=== PATIENT | male | born 1950 | race Caucasian/White ===

== ENCOUNTER → 2021-02-04 12:20 | Outpatient (CLI) | payer BC, SELFPAY ==
--- NOTE | 2021-02-04 12:24 | XR_ITS ---
PROCEDURE: XR CHEST 2V CLINICAL HISTORY: dyspnea,pneumonia COMPARISON: No exams were available for comparison FINDINGS: Borderline cardiomegaly without failure. The lungs are clear without infiltrates, suspicious nodules, or pleural effusions. Multiple old left-sided rib fractures of the 5th, 6, and 7th ribs. Coronary artery stent is noted on the left. Degenerative changes thoracic spine. IMPRESSION: No acute findings. Dictated by: Agusto Llamas MD 02/04/2021 13:00 Agusto Llamas MD in [place] 02/04/2021 13:00
== END ==
PROVIDERS: PCP Family Medicine; Visit Provider Family Medicine
DX: J06.9 Acute upper respiratory infection, unspecified (principal)
CPT/HCPCS: 71046

== ENCOUNTER → 2022-11-03 14:36 | Outpatient (CLI) | payer BC, SELFPAY ==
[2022-11-03 14:47] LABS: Basophils % 0.5 % (0.1-2.0); Eosinophils # 0.1 K/mm3 (0.0-0.4); Eosinophils % 1.7 % (0.1-12.0); Hematocrit 44.9 % (42.0-52.0); Hemoglobin 14.7 g/dL (14.1-18.0); Lymphocytes # 0.4 K/mm3 (0.7-4.5); Lymphocytes % 13.1 % (10-50); Mean Corpuscular HGB Conc 32.8 g/dL (31.8-35.4); Mean Corpuscular Hemoglobin 31.4 pg (27.0-31.2); Mean Corpuscular Volume 95.8 fl (80-94); Mean Platelet Volume 10.4 fl (7.4-10.4); Monocytes # 0.4 K/mm3 (0.1-1.0); Monocytes % 11.6 % (1.7-9.3); Neutrophils # 2.3 K/mm3 (1.8-7.8); Platelet Count 128 K/mm3 (142-424); Red Blood Count 4.69 M/mm3 (4.60-6.20); White Blood Count 3.2 K/mm3 (4.8-10.8)
[2022-11-03 14:54] LABS: Chloride 102 mmol/L (98-107); Potassium 3.9 mmoL/L (3.5-5.1); Sodium 137 mmol/L (136-145)
[2022-11-03 14:57] LABS: Alanine Aminotransferase 254 U/L (12-78); Albumin Level 4.3 g/dl (3.5-5.0); Albumin/Globulin Ratio 2.2 (1.1-1.8); Alkaline Phosphatase 223 U/L (38-126); Anion Gap 11.9 mEq/L (5-15); Aspartate Amino Transferase 165 U/L (17-59); Bilirubin,Total 1.8 mg/dl (0.2-1.3); Blood Urea Nitrogen 16 mg/dl (9-20); Carbon Dioxide 27 mmol/L (22.0-30.0); Estimated Glomerular Filt Rate 110 ml/min (>60); GFR (African American) 133 ML/MIN (>60); Total Protein,Serum 6.3 g/dl (6.3-8.2)
[2022-11-03 14:58] LABS: Calcium 9.1 mg/dl (8.4-10.2); Glucose 110 mg/dl (74-100)
== END ==
PROVIDERS: PCP Nurse Practitioner Family; Visit Provider Nurse Practitioner Family
DX: N23 Unspecified renal colic (principal); B96.89 Other specified bacterial agents as the cause of diseases classified elsewhere
CPT/HCPCS: 80053; 85025; 87086; 87088; 87186

== ENCOUNTER → 2022-11-13 13:41 | Outpatient (CLI) | payer BC, SELFPAY ==
[2022-11-13 13:18] LABS: Chloride 100 mmol/L (98-107)
[2022-11-13 13:19] LABS: Potassium 4.8 mmoL/L (3.5-5.1); Sodium 134 mmol/L (136-145)
[2022-11-13 13:21] LABS: Alanine Aminotransferase 38 U/L (12-78); Anion Gap 13.8 mEq/L (5-15); Aspartate Amino Transferase 31 U/L (17-59); Blood Urea Nitrogen 22 mg/dl (9-20); Carbon Dioxide 25 mmol/L (22.0-30.0); Estimated Glomerular Filt Rate 65 ml/min (>60); GFR (African American) 79 ML/MIN (>60)
[2022-11-13 13:22] LABS: Albumin Level 4.4 g/dl (3.5-5.0); Albumin/Globulin Ratio 2.2 (1.1-1.8); Alkaline Phosphatase 151 U/L (38-126); Bilirubin,Total 1.1 mg/dl (0.2-1.3); Calcium 9.1 mg/dl (8.4-10.2); Chol/HDL Ratio 4.2 (1-3.5); Cholesterol 217 mg/dl (140-200); Glucose 112 mg/dl (74-100); HDL Cholesterol 52 mg/dl (40-60); Total Protein,Serum 6.4 g/dl (6.3-8.2); Triglycerides 88 mg/dl (30-150); VLDL Cholesterol 18 mg/dL (0-40)
[2022-11-14 13:33] LABS: Hep A Ab, IgM Negative (Negative); Hepatitis B Core Antibody IgM Negative (Negative)
[2022-11-29 20:44] LABS: Hepatitis B Surface Antigen Negative; Hepatitis C Antibody Non Reactive
== END ==
PROVIDERS: PCP Family Medicine; Visit Provider Family Medicine
DX: R74.8 Abnormal levels of other serum enzymes (principal)
CPT/HCPCS: 80053; 80061; 80074

== ENCOUNTER → 2023-01-29 11:33 | Outpatient (CLI) | payer BC, SELFPAY ==
[2023-01-29 18:30] LABS: Basophils % 0.4 % (0.1-2.0); Eosinophils # 0.1 K/mm3 (0.0-0.4); Eosinophils % 1.7 % (0.1-12.0); Hematocrit 43.3 % (42.0-52.0); Hemoglobin 14.3 g/dL (14.1-18.0); Lymphocytes % 23.4 % (10-50); Mean Corpuscular HGB Conc 32.9 g/dL (31.8-35.4); Mean Corpuscular Hemoglobin 31.3 pg (27.0-31.2); Mean Corpuscular Volume 94.9 fl (80-94); Mean Platelet Volume 10.8 fl (7.4-10.4); Monocytes # 0.4 K/mm3 (0.1-1.0); Monocytes % 8.4 % (1.7-9.3); Neutrophils # 2.8 K/mm3 (1.8-7.8); Neutrophils % 66.2 % (37.0-80.0); Platelet Count 194 K/mm3 (142-424); Red Blood Count 4.57 M/mm3 (4.60-6.20); Red Cell Distribution Width 14.1 % (11.5-17.5); White Blood Count 4.2 K/mm3 (4.8-10.8)
[2023-01-29 18:51] LABS: Alanine Aminotransferase 25 U/L (12-78); Albumin/Globulin Ratio 2.3 (1.1-1.8); Alkaline Phosphatase 109 U/L (38-126); Anion Gap 12.7 mEq/L (5-15); Aspartate Amino Transferase 37 U/L (17-59); Blood Urea Nitrogen 16 mg/dl (9-20); Calcium 9.5 mg/dl (8.4-10.2); Carbon Dioxide 31 mmol/L (22.0-30.0); Chloride 98 mmol/L (98-107); Chol/HDL Ratio 2.5 (1-3.5); Cholesterol 245 mg/dl (140-200); Estimated Glomerular Filt Rate 94 ml/min (>60); GFR (African American) 114 ML/MIN (>60); Globulin 2.2 g/dL (1.3-3.2); Glucose 106 mg/dl (74-100); HDL Cholesterol 97 mg/dl (40-60); Potassium 4.7 mmoL/L (3.5-5.1); Sodium 137 mmol/L (136-145); Total Protein,Serum 7.2 g/dl (6.3-8.2); Triglycerides 106 mg/dl (30-150); Uric Acid 5.3 mg/dl (3.5-8.5); VLDL Cholesterol 21 mg/dL (0-40)
[2023-01-29 19:19] LABS: Erythrocyte Sedimentation Rate 9 mm/hr (0-20)
[2023-01-29 19:23] LABS: Prostate Specific Ag Screen 3.6 ng/ml (0.0-4.0)
[2023-01-29 22:43] LABS: Hemoglobin A1C 5.3 % (4.0-6.0)
[2023-01-31 08:18] LABS: RA Latex Turbid. 11.8 IU/mL (<14.0)
[2023-02-01 20:42] LABS: Antinuclear Antibodies, IFA Negative (.)
== END ==
LOC: LAB 01-30 08:44
PROVIDERS: PCP Family Medicine; Visit Provider Family Medicine
DX: M15.4 Erosive (osteo)arthritis (principal); I10 Essential (primary) hypertension; J45.909 Unspecified asthma, uncomplicated; Z79.899 Other long term (current) drug therapy; Z12.5 Encounter for screening for malignant neoplasm of prostate
CPT/HCPCS: 80053; 80061; 83036; 84550; 85025; 85651; 86038; 86140; 86431; G0103

== ENCOUNTER → 2023-02-01 23:13 | Outpatient (CLI) | payer BC, SELFPAY ==
[2023-02-01 20:41] LABS: Erythrocyte Sedimentation Rate 13 mm/hr (0-20)
== END ==
PROVIDERS: PCP Family Medicine; Visit Provider Family Medicine
DX: M15.4 Erosive (osteo)arthritis (principal)
CPT/HCPCS: 85651

== ENCOUNTER 2023-07-30 09:21 | Outpatient (CLI) | payer BC, SELFPAY ==
[2023-07-30 19:22] LABS: Amphetamine/Metha Screen,Urine Negative ng/ml (<1000); Barbiturates Screen,Urine Negative ng/ml (<200); Benzodiazepines Screen,Urine Negative ng/ml (<200); Cannabinoid Screen,Urine Negative ng/ml (<50); Cocaine Screen,Urine Negative ng/ml (<300); Methadone Screen,Urine Negative ng/ml (<300); Opiate Screen,Urine Positive ng/ml (<300); Phencyclidine Screen,Urine Negative ng/ml (<25)
== END 2023-07-30 23:59 ==
LOC: LAB.DROPOF 07-31 09:21
PROVIDERS: PCP Family Medicine; Visit Provider Family Medicine
DX: Z79.899 Other long term (current) drug therapy (principal)
CPT/HCPCS: 80307

== ENCOUNTER 2024-05-05 12:45 | Outpatient (CLI) | payer BC, SELFPAY ==
[2024-05-05 17:57] LABS: Eosinophils # 0.1 K/mm3 (0.0-0.4); Eosinophils % 2.4 % (0.1-12.0); Hematocrit 38.8 % (42.0-52.0); Hemoglobin 13.9 g/dL (14.1-18.0); Lymphocytes % 29.4 % (10-50); Mean Corpuscular HGB Conc 35.7 g/dL (31.8-35.4); Mean Corpuscular Hemoglobin 33.4 pg (27.0-31.2); Mean Corpuscular Volume 93.7 fl (80-94); Mean Platelet Volume 10.3 fl (7.4-10.4); Monocytes # 0.3 K/mm3 (0.1-1.0); Monocytes % 9.9 % (1.7-9.3); Neutrophils % 57.3 % (37.0-80.0); Platelet Count 166 K/mm3 (142-424); Red Blood Count 4.15 M/mm3 (4.60-6.20); Red Cell Distribution Width 14.2 % (11.5-17.5); White Blood Count 3.4 K/mm3 (4.8-10.8)
[2024-05-05 18:12] LABS: Alanine Aminotransferase 40 U/L (12-78); Albumin Level 4.6 g/dl (3.5-5.0); Albumin/Globulin Ratio 2.1 (1.1-1.8); Alkaline Phosphatase 94 U/L (38-126); Anion Gap 3.5 mEq/L (5-15); Aspartate Amino Transferase 43 U/L (17-59); Blood Urea Nitrogen 19 mg/dl (9-20); Calcium 9.8 mg/dl (8.4-10.2); Carbon Dioxide 31 mmol/L (22.0-30.0); Chloride 102 mmol/L (98-107); Chol/HDL Ratio 3.4 (1-3.5); Cholesterol 245 mg/dl (140-200); Estimated Glomerular Filt Rate 94 ml/min (>60); GFR (African American) 114 ML/MIN (>60); Globulin 2.2 g/dL (1.3-3.2); Glucose 101 mg/dl (74-100); HDL Cholesterol 72 mg/dl (40-60); Potassium 4.5 mmoL/L (3.5-5.1); Sodium 132 mmol/L (136-145); Total Protein,Serum 6.8 g/dl (6.3-8.2); Triglycerides 114 mg/dl (30-150); VLDL Cholesterol 23 mg/dL (0-40)
[2024-05-05 18:23] LABS: Direct LDL Cholesterol 141.27 mg/dL (100-129)
[2024-05-05 18:42] LABS: Prostate Specific Ag Screen 4.1 ng/ml (0.0-4.0)
[2024-05-05 20:04] LABS: Thyroid Stimulating Hormone 1.14 uIU/mL (0.465-4.68)
== END 2024-05-05 23:59 | disposition home or self-care (01) ==
LOC: LAB.DROPOF 05-06 10:38
PROVIDERS: PCP Family Medicine; Visit Provider Family Medicine
DX: I10 Essential (primary) hypertension (principal)
CPT/HCPCS: 80050; 80053; 80061; 84443; 85025; G0103

== ENCOUNTER 2024-07-07 11:20 | Outpatient (CLI) | payer BC, SELFPAY ==
[2024-07-07 18:50] LABS: C-Reactive Protein 3.7 mg/L (0-4)
[2024-07-07 20:07] LABS: Erythrocyte Sedimentation Rate 13 mm/hr (0-20)
[2024-07-07 22:57] LABS: Vitamin B12 607 pg/mL (239-931)
== END 2024-07-07 23:59 | disposition home or self-care (01) ==
LOC: LAB.DROPOF 07-08 09:23
PROVIDERS: PCP Family Medicine; Visit Provider Family Medicine
DX: E53.8 Deficiency of other specified B group vitamins (principal); R10.9 Unspecified abdominal pain; I10 Essential (primary) hypertension
CPT/HCPCS: 82607; 85651; 86140

== ENCOUNTER 2025-03-16 11:01 | Outpatient (CLI) | payer MEDICARE, SELFPAY ==
--- OUTSIDE RECORDS SUMMARY | 2006-08-10 01:00 | XMS_ITS | Encounter Summary ---
Author Organization [facility] Address [address] [place] [address] Care Team Providers Care Haunted History Tour Guide Name Role Phone Unavailable Primary Care Provider Unavailabl e Encounter Details Date Type Department Care Team (Late st Contact Info) Description 08/10/2006 Hospital Encounter [facility] Division of Orthopaedics [address] [place] [phone] Social History Tobacco Use Types Packs/Day [...]
--- OUTSIDE RECORDS SUMMARY | 2006-09-14 01:00 | XMS_ITS | Encounter Summary ---
Author Organization [facility] Address [address] [place] [address] Care Team Providers Care Follow Up Rep Name Role Phone Unavailable Primary Care Provider Unavailabl e Encounter Details Date Type Department Care Team (Late st Contact Info) Description 09/14/2006 Hospital Encounter [facility] Division of Orthopaedics [address] [place] [phone] Social History Tobacco Use Types Packs/Day [...]
--- OUTSIDE RECORDS SUMMARY | 2006-11-23 | XMS_ITS | Encounter Summary ---
Author Organization [facility] Address [address] [place] [address] Care Team Providers Care Construction Director Name Role Phone Unavailable Primary Care Provider Unavailabl e Encounter Details Date Type Department Care Team (Late st Contact Info) Description 11/23/2006 Hospital Encounter [facility] Division of Orthopaedics [address] [place] [phone] Social History Tobacco Use Types Packs/Day Years Used Date Smoking Tobacco: Never Assessed Sex and Gender Information Value Date Recorded Sex Assigned at Not on file Legal Sex Male 5:19 AM EST Gender Identity Not on file Sexual Orientation Not on file documented as of this encounter Plan of Treatment Not on file documented as of this encounter Procedures Procedure Name Priority Date/Time Associated Diagnosis Comments MODI C-SPINE (2 OR 3V) Routine 11/23/2006 8:32 AM EDT documented in this encounter Results * MODI C-SPINE (2 OR 3V) (11/23/2006 8:32 AM EDT) Anatomical Region Laterality Modality Computed Radiogr aphy 11/23/2006 8:32 AM EDT Narrative 11/23/2006 8:32 AM EDT COMPARISON: 09/14/2006. CLINICAL HISTORY: Almost 57-year-old male followup a cure core decompression and fusion C3/C4/. PROCEDURE COMMENTS: Frontal lateral views of the cervical spine. FINDINGS: There are screws and plates from the anterior approach at the C3-C4 level with spacer between these 2 vertebral bodies. The appearance is stable compared with prior study. The levels above and below the fusion are stable. There is extensive degenerative disc disease inferiorly in the cervical spine. IMPRESSION: Stable C3-C4 ACDF. Interpreted By: DELORES HANCOCK M.D. Verified By: DELORES HANCOCK M.D. on 11/23/2006 09:42 via Electronic Signature The attending radiologist has reviewed the images and agrees with this report. us Parth Rausch M.D. DIAGNOSTIC IMAGING ORDERABL ES Final Result documented in this encounter Visit Diagnoses Not on filedocumented in this encounter
--- OUTSIDE RECORDS SUMMARY | 2024-02-03 10:12 | XMS_ITS | Continuity of Care Document ---
Author Organization [facility] Address [address] [place] [address] Phone Care Team Providers Care Real Estate Developer Name Role Phone Sohail Dukes MD Unavailable Unavailable Allergies, Adverse Reactions, Alerts Substance Reaction Status Criticality Sulfa (Sulfonamide Antibiotics) Other Active No Information Medications Medication Instructions Dosage Effective Dates (start - stop) Status Comments erythromycin 5 mg/gram (0.5 %) eye ointment apply (1CM) by ophthalmic route 3 times every day along the right lower eyelid for 2 weeks. - Active losartan 100 mg tablet take 1 tablet by oral route every day 100 MG - Active montelukast 10 mg tablet take 1 tablet by oral route every day in the evening 10 MG - Active aspirin 81 mg tablet,delayed release take 1 tablet by oral route every day 81 MG - Active celecoxib 200 mg capsule take 1 capsule by oral route 2 times every day 200 MG - Active amlodipine 10 mg tablet take 1 tablet by oral route every day 10 MG - Active omeprazole 20 mg tablet,delayed release take 1 tablet by oral route every day 1 tablet - Active hydrocodone 7.5 mg-acetaminophen 300 mg tablet take 1 tablet by oral route every 6 hours as needed 1.00 tablet - Active Procedures Procedure Date Incisional Biopsy Of Eyelid Skin Includi ng Lid Margin OFFICE/OUTPATIENT VISIT, NEW Advance Directives Directive Yes / No Effective Date File Name No Information Encounters Encounter Description Practice Location Reason(s) For Visit Diagnoses Date Provider Providers Copied on Encounter [facility] , [address] [place], [address], [place] tel:[phone] [facility] [place] No Information Roseline Sauceda. [address] [place], [place], [id number] , [place]. tel:[phone] OFFICE/OUTPAT IENT VISIT, NEW [facility] , [address] [place], [address], [place] tel:[phone] [facility] [place] Lesion (chief complaint) Inflamed seborrheic keratosisOther benign neoplasm of skin of right lower eyelid, including canthus Roseline Sauceda. [address] [place], [place], [id number] , [place]. tel:[phone] Referring Provider: Sohail Morley, [address] [place] [address], [address] . tel:[phone] Family History Family Member Type Diagnosis Age At Onset No Information Payers Payer name Insurance type Covered constitution party ID Garry mccray(s) [facility] [place] [id number] Social History Type Description Quantity Date Captured Comments Sex Male Smoking Status No Information Chief Complaint And Reason For Visit No Information Reason For Referral Reason For Referral No Information Plan Of Treatment Date Type Action Status Goal Tobacco cessation counseling completed Future Order: Lab Order Dermatop athology (Dermatopathology), Collected on: , Sent on: Sent History Of Present Illness Encounter Date Complaint History Of Prese nt Illness Lesion The 73 year old patient presents for evaluation of Lesion on his RLL per Dr Perez. Pt states the lesion was just noticed 6 weeks ago. Pt thought is was either a stye or ingrown eyelash. No c/o pain or discomfort. C/o some itching, no bleeding. Does have history of skin cancer, BCC on his nose. Had MOHS to reconstruct in 2008. Vision is not affected at this time. No prior treatment. Functional Status Date Functional Assessmen t No Information Instructions Date Instruction Additional Infor mation Impression/Plan Assessments Type Assessment Date No Information Patient Care Teams Name Effective Dates (start - stop) Status Members No Information
--- OUTSIDE RECORDS SUMMARY | 2024-03-29 10:00 | XMS_ITS | Continuity of Care Document ---
Author Name [facility] Organization [facility] Care Team Providers Care Customer Engagement Specialist Name Role Phone [facility] Unavailable Unavailable Immunizations Combined list of available immunizations from the Department of Defense and Veterans Affairs facilities. Immunization Series Date Given Administered By Site Reaction Lot Number CVX Code Drug Sleeve Fixer Status Comments Source COVID-19 (PFIZER), MRNA, LNP-S, PF, 30 MCG/0.3 ML DOSE 2 2020 208 complet ed [facility] COVID-19 (PFIZER), MRNA, LNP-S, PF, 30 MCG/0.3 ML DOSE 1 2020 208 complet ed [facility] Encounters Combined list of: 1) Encounters from Department of Veterans Affairs facilities going backup to the last 18 months, not all VA inpatient encounters are included; 2) Encounters from the Department of Defense facilities going backup to 280 months. Location Location Details Encounter Type Encounter Number Reason For Visit Attending Provider ADM Date DC Date Status Disposition Source [facility] Outpatient Encounter [id number] 03/29 NESSA ARTEAGA
--- OUTSIDE RECORDS SUMMARY | 2025-03-19 11:42 | XMS_ITS | Encounter Summary ---
Author Organization [facility] [place] [address] Care Team Providers Care Construction Cost Estimator Name Role Phone Terry Perez MD Primary Care Provider [phone] Jose Manrique MD Unavailable Unavailable Encounter Details Date Type Department Care Team (Late st Contact Info) Description 10/13/2013 Orders Only [facility] [place] [facility] [address] [place] [address] Jose Manrique MD Social History Tobacco Use Types Packs/Day Years Used Date Smoking Tobacco: Former Smokeless Tobacco: Never Alcohol Use Standard Drinks/Week Comments Yes 4 (1 standard drink = 0.6 oz pur e alcohol) 4-5 a week Sex and Gender Information Value Date Recorded Sex Assigned at Not on file Legal Sex Male 1:31 PM EDT Gender Identity Not on file Sexual Orientation Not on file documented as of this encounter Plan of Treatment Not on file documented as of this encounter Procedures Procedure Name Priority Date/Time Associated Diagnosis Comments [facility]ED EGD Routine 10/13/2013 7:30 AM EDT documented in this encounter Results * [facility]ED EGD (10/13/2013 7:30 AM EDT) 10/13/2013 7:30 AM EDT Impressions [facility] - 10/13/2013 7:56 AM EDT Normal esophagus. Normal stomach. Normal duodenum. This section is an excerpt of the full report. us Jose Manrique MD GI PROCEDURE ORDERABLES Final R esult [facility] [address] [place] [address] documented in this encounter Visit Diagnoses Not on filedocumented in this encounter Care Teams Construction Cost Estimator Relationship Specialty Start Date End Date Terry Perez MD PCP - General 10/06/10 Jose Manrique MD Internal Medicine-Gastroenterology 09/15/13 documented as of this encounter
--- OUTSIDE RECORDS SUMMARY | 2025-03-19 11:42 | XMS_ITS | Encounter Summary ---
Author Organization [facility] Address [address] [place] [address] Care Team Providers Care Floral Specialist Name Role Phone Terry Perez MD Primary Care Provider [phone] Encounter Details Date Type Department Care Team (Late st Contact Info) Description 04/23/2016 Abstract [facility] - Spine Surgery, [place] [address] [place] [address] Ambulatory, Housecleaner Social History Tobacco Use Types Packs/Day Years Used Date Smoking Tobacco: Former Cigarettes Q uit: 09/14/2001 Smokeless Tobacco: Never Alcohol Use Standard Drinks/Week Comments Yes 0 (1 standard drink = 0.6 oz pur e alcohol) social, once or twice a week Sex and Gender Information Value Date Recorded Sex Assigned at Not on file Legal Sex Male 3:44 PM EST Gender Identity Not on file Sexual Orientation Not on file documented as of this encounter Plan of Treatment Not on file documented as of this encounter Visit Diagnoses Not on filedocumented in this encounter Care Teams Floral Specialist Relationship Specialty Start Date End Date Terry Perez MD PCP - General Family Medicine 03/16/11 documented as of this encounter
--- OUTSIDE RECORDS SUMMARY | 2025-03-19 11:43 | XMS_ITS | Clinical Summary ---
Author Organization [facility] Address [address] [place] [address] Care Team Providers Care Esthetician/Spa Coordinator Name Role Phone Terry Perez MD Primary Care Provider [phone] Source Comments This information has been disclosed to you from confidential records protectedfrom disclosure by state law. You shall make no further disclosure of thisinformation without the specific, written, and informed release of theindividual to whom it pertains, or as otherwise permitted by law. A generalauthorization for the release of medical or other information is not sufficientfor the purposes of therelease of HIV test results or diagnoses. [id number] Allergies Active Allergy Reactions Criticality Noted Date Comments Atorvastatin Swelling 05/19/2016 Joint pain and swelling Ezetimibe 05/19/2016 myaglias Penicillin Swelling 05/19/2016 Mzgzcta-Qxh-Hko Reductase Inhibitors Swelling 05/19/2016 Causes joint swelling and joint pain Sulfa (Sulfonamide Antibiotics) Swelling 05/19/2016 Medications losartan (COZAAR) 50 MG tablet Take 1 tablet (50 mg total) by mouth daily. Active esomeprazole (NEXIUM) 40 MG capsule Take 1 capsule (40 mg total) by mouth every morning before breakfast. Active amLODIPine (NORVASC) 10 MG tablet Take 1 tablet (10 mg total) by mouth daily. Active aspirin 81 MG EC tablet Take 1 tablet (81 mg total) by mouth daily. Active albuterol (PROVENTIL;VENT GARY;PROAIR) 90 mcg/actuation inhaler Inhale into the lungs. Active nitroGLYCERIN (NITROSTAT) 0.[address] under the tongue. 6 Active loratadine (CLARITIN) 10 mg tablet 10 mg daily. Active HYDROcodone-john taminophen (NORCO) 7.5-325 mg per tablet Take 1 tablet by mouth every 6 hours as needed for Pain. Active montelukast (SINGULAIR) 10 mg tablet Take 1 tablet (10 mg total) by mouth daily. Active fluorouraciL (EFUDEX) 5 % cream Twice daily after biopsy has healed. Apply in area and half inch around for 12 weeks. If severe reaction may stop for few days,and restart. 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 Overview (04/25/2015): ICD-10 Transition Allergic state 11/22/2008 Overview (04/25/2015): ICD-10 Transition Immunizations Immunization Administration Dates Next Due Influenza, unspecified 09/03/2006 Family History Medical History Relation Comments Anesthesia problems Neg Hx Eczema Neg Hx Melanoma Neg Hx Psoriasis Neg Hx Social History Tobacco Use Types Packs/Day Years Used Date Smoking Tobacco: Never Smokeless Tobacco: Never Tobacco Cessation:Counseling Given: Not Answered Alcohol Use Standard Drinks/Week Comments Yes 1 (1 standard drink = 0.6 oz pur e alcohol) socially Sex and Gender Information Value Date Recorded Sex Assigned at Not on file Legal Sex Male 4:13 PM EST Gender Identity Not on file Sexual Orientation Not on file Last Filed Vital Signs Vital Sign Reading Time Taken Comments Blood Pressure 122/77 02/07/2024 2:51 PM EDT map 92 Pulse 65 02/07/2024 2:51 PM EDT Temperature 36.2 C (97.1 F) 02/07/2024 2:51 PM EDT Respiratory Rate 16 02/07/2024 2:51 PM EDT Oxygen Saturation 98% 02/07/2024 2:51 PM EDT Inhaled Oxygen Concentration 98% 02/07/2024 2 :51 PM EDT Weight 74.8 kg (165 lb) 02/07/2024 2:22 PM EDT Height 172.7 cm (5' 8 ) 01/21/2024 10:33 AM EDT Body Mass Index 25.09 01/21/2024 10:33 AM EDT Plan of Treatment Health Maintenance Due Date Last Done Comments Alcohol Misuse Screening 02/03/1966 Depression Screening 02/03/1966 Immunization: DTaP/Tdap/Td ( 1 - Tdap) 02/03/1967 Immunization: Zoster (1 of 2) 02/03/1998 Immunization: Pneumococcal ( 2 of 2 - PCV) 04/11/2012 04/11/2011 Immunization: RSV (Adult) (1 - 1-dose 75+ series) 02/03/2023 Immunization: COVID-19 (3 - 2023- season) 2024 10/25/2020, 10/04/2020 Immunization: Influenza (MyC crenshaw) (#1) 2025 05/05/2024, 05/14/2023, 05/08/2022, Additional history exists Insurance MEDICARE A Member Subscriber Plan / Payer (Ef fective 2013-Present) Name:Rupert Ward Relation to Subscriber:Self Name:Rupert Ward Payer ID:[id number] Group ID:Not on file Type:Medicare Address: [facility] [id number] ACCESS Care Teams Esthetician/Spa Coordinator Relationship Specialty Start Date End Date Terry Perez MD [address] [address] PCP - General Family Medicine 11/01/13
--- OUTSIDE RECORDS SUMMARY | 2025-03-19 11:43 | XMS_ITS | Referral Summary ---
Author Organization [facility] Address [address] [place] [address] Care Team Providers Care News Content Specialist Name Role Phone Terry Perez MD Primary Care Provider [phone] Allergies Active Allergy Reactions Criticality Noted Date Comments Penicillins Unknown 08/12/2016 Statins Unknown 08/12/2016 Sulfa Antibiotics Unknown 08/12/2016 Medications aspirin 81 MG CHEW 81 mg by Chewable route daily. Active losartan (COZAAR) 50 MG TABS Take 50 mg by mouth daily. Active amlodipine (NORVASC) 10 MG TABS Take 10 mg by mouth daily. Active Glucosamine HCl (GLUCOSAMINE PO) Take by mouth. Active TRAMADOL HCL PO Take by mouth. Active esomeprazole (NEXIUM) 40 MG CPDR Take 40 mg by mouth every morning before breakfast. Active Active Problems Problem Noted Date Diagnosed Date Primary osteoarthritis of fi rst carpometacarpal joint of right hand 08/13/2016 Social History Tobacco Use Types Packs/Day Years Used Date Smoking Tobacco: Never Smokeless Tobacco: Never Alcohol Use Standard Drinks/Week Comments Yes 0 (1 standard drink = 0.6 oz pur e alcohol) Sex and Gender Information Value Date Recorded Sex Assigned at Not on file Legal Sex Male 11:20 PM EDT Gender Identity Not on file Sexual Orientation Not on file Occupation Industry Job Start Date Job End Date Retired Not on file Not on file Not on file Last Filed Vital Signs Vital Sign Reading Time Taken Comments Blood Pressure 117/70 08/12/2016 9:15 AM EST Pulse - - Temperature - - Respiratory Rate - - Oxygen Saturation - - Inhaled Oxygen Concentration - - Weight 74.8 kg (165 lb) 08/12/2016 9:15 AM EST Height 172.7 cm (5' 8 ) 08/12/2016 9:15 AM EST Body Mass Index 25.09 08/12/2016 9:15 AM EST Plan of Treatment Not on file Insurance [employer] ALL OTHERS NOT MEDICARE Care Teams News Content Specialist Relationship Specialty Start Date End Date Terry Perez MD PCP - General Family Medicine 07/21/16
--- OUTSIDE RECORDS SUMMARY | 2025-03-19 11:43 | XMS_ITS | Clinical Summary ---
Author Organization [facility] Address [address] [place] [address] Care Team Providers Care Java Android Developer Name Role Phone Terry Perez MD Primary Care Provider [phone] Allergies Active Allergy Reactions Criticality Noted Date [...] 08/12/2016 9:15 AM EST Plan of Treatment Health Maintenance Due Date Last Done Comments Hepatitis C Screening 1950 DTap,Tdap,and Td (1 - Tdap) 02/03/1959 Pneumococcal 50+ (1 of 1 - PCV) 02/03/1998 Shingrix (#1) 02/03/1998 RSV Vaccine (60+ or ) (1 - 1-dose 75+ series) 02/03/2023 Influenza Vaccine (#1) 2025 HPV Aged Out No longer eligi ble based on patient's age to complete this topic Meningococcal conjugate arron nt 4 (MCV4) Aged Out No longer eligible b ased on patient's age to complete this topic RSV Immunization (<20 months) Aged Out No longer eligible based on patient's age to complete this topic Insurance [id number] [facility] [place] [employer] ALL OTHERS NOT MEDICARE Care Teams Java Android Developer Relationship Specialty Start Date End Date Terry Perez MD PCP - General Family Medicine 07/21/16
--- OUTSIDE RECORDS SUMMARY | 2025-03-19 11:43 | XMS_ITS | Clinical Summary ---
Author Organization [facility] [place] Address [address] [facility] [address] [place] [address] Phone Care Team Providers Care Transaction Processor Name Role Phone Terry Perez MD Primary Care Provider [phone] Jose Manrique MD Unavailable Unavailable Allergies Active Allergy Reactions Criticality Noted Date Comments Meloxicam Other (See Comments) High 06/22/2023 LIVER ENZYMES ELEVATED, VERY SICK Penicillins Swelling Medium 09/15/2013 Patient states that he also had redness of the skin *(Patient states on 05/12/19, that he has had AMOXICILLIN with no issues)* Fpqybfn-Rbr-Hve Reductase Inhibitors Swelling,Myalgia Medium 05/12/2019 Patient states that he has had Atorvastatin, Simvastatin, Rosuvastatin, and Ezetimibe (Will not take another Statin again, he was miserable) Sulfa (Sulfonamide Antibiotics) Swelling Medium 09/15/2013 Patient states that he also had redness of the skin (Patient cannot recollect which Sulfa had been given, to long ago) Medications esomeprazole (NEXIUM) 40 mg Oral Capsule, Delayed Release(E.C.)I ndications:gas troesophageal reflux disease Take 40 mg by mouth daily. Indications: gastroesophageal reflux disease Active ranitidine (ZANTAC) 150 mg tablet Take 150 mg by mouth daily as needed for Heartburn. Active losartan (COZAAR) 100 mg Oral Tablet Take 50 mg by mouth daily. Active amLODIPine (NORVASC) 10 mg Oral Tablet Take 10 mg by mouth daily. Active aspirin 81 mg tabletIndicati ons:Heart Take 81 mg by mouth daily. Indications: Heart Active loratadine (CLARITIN) 10 mg Oral Tablet Take 10 mg by mouth daily. Active HYDROcodone-ac etaminophen (NORCO) 7.5-325 mg Oral Tablet Take 1 Tab by mouth every 6 hours as needed for Acute Pain (R52). Active albuterol (PROVENTIL HFA;VENTOLIN HFA) 90 mcg/actuation Inhl HFA Aerosol Inhaler Inhale 2 Puffs into the lungs daily as needed. Active celecoxib (CELEBREX) 200 mg Oral Capsule Take 200 mg by mouth daily. 3 04/04/20 19 Active evolocumab 140 mg/mL SubQ Pen Injector Subcutaneous (Inject under the skin) 140 mg every 14 days. 03/16/20 19 Active nitroGLYCERIN (NITROSTAT) 0.4 mg SL Tablet, Sublingual Place 0.4 mg under the tongue every 5 minutes as needed for Chest pain. (Max 3 tablets in 15 min's, if no relief, call 911) 01/01/20 16 Active albuterol (PROVENTIL) 2.5 mg /3 mL (0.083 %) Inhl Solution for NebulizationIn dications:Asth ma 2.5 mg every 6 hours as needed. Indications: Asthma 10 03/09/20 19 Active cetirizine (ZYRTEC) 10 mg Oral Tablet Take 10 mg by mouth daily. Active montelukast (SINGULAIR) 10 mg Oral Tablet Take 10 mg by mouth daily. Active fluticasone propionate (FLONASE) 50 mcg/actuation Nasl Davy, Suspension 1 Davy in each nostril daily. Active Active Problems Problem Noted Date Diagnosed Date Mass of soft tissue of neck 09/23/2022 Screening for colon cancer 09/02/2021 Overview (09/02/2021): Added automatically from request for surgery [id number] Acute chest pain 05/13/2019 Coronary artery disease invo lving skagway coronary artery of skagway heart with unstable angina pectoris 05/12/2019 Mild intermittent asthma without complication Gastroesophageal reflux disease without esophagi tis 05/12/2019 S/P coronary artery stent placement 05/12/2019 Overview (05/12/2019): remote angioplasty and stenting to the LAD treated for coronary vasospasm in the past most recent revascularization procedure was in 2011 with PCI. Dyslipidemia 05/12/2019 History of tobacco abuse 05/12/2019 Impaired glucose tolerance 05/12/2019 Primary insomnia 05/12/2019 Essential hypertension 05/12/2019 Immunizations Immunization Administration Dates Next Due Pfizer SARS-CoV-2 Vaccine 12+ Yrs (Purple Cap) 0 10/25/2020,10/04/2020 Surgical History Surgery Date Site/Laterality Comments COLONOSCOPY UPPER GASTROINTESTINAL ENDOSCOPY HERNIA REPAIR CERVICAL SPINE SURGERY CAGE IN ANTERIOR NECK C2-4 CARPAL TUNNEL RELEASE HAND SURGERY AORTA SURGERY 07/26/2011 - 07/25/2012 aortic stent COLONOSCOPY 07/10/2016 N/A COLONOSCOPY with snare polypectomy; Surgeon: Jai Estes MD; Location: [facility]; Service: Endoscopy COLONOSCOPY 10/28/2021 N/A Colonoscopy with polypectomies via cold snare; Surgeon: Toni Cohen MD; Location: [facility]; Service: Endoscopy SOFT TISSUE BIOPSY 06/24/2023 N/A Excision of posterior neck cyst; Surgeon: Otto Diaz DO; Location: [facility]; Service: General Medical History Medical History Date Comments Hernia of unspecified site o f abdominal cavity without mention of obstruction or gangrene Hypertension Heartburn Seasonal allergies Arthritis Transient global amnesia 05/12/2019 Asthma LAST ATTACH COUP LE MONTHS AGO IN [place]ALL 05/2023 Hyperlipidemia 05/2023 NO RX DU E TO HAND SWELLING & PAIN Hiatal hernia Headache Bladder problem HYDROCELE Claustrophobia Family History Medical History Relation Name Comments Colon Polyps Brother Heart Disease Father Cancer Mother lung Anesth Problems Neg Hx Relation Name Status Comments Brother Alive Father Mother Social History Tobacco Use Types Packs/Day Years Used Date Smoking Tobacco: Former Cigarettes Q uit: 07/26/1981 Smokeless Tobacco: Never Tobacco Cessation:Counseling Given: Not Answered Alcohol Use Standard Drinks/Week Comments Not Currently 0 (1 standard drink = 0.6 oz pur e alcohol) a few beers or so a week Sexually Active Control Partners Comments Yes Female Sex and Gender Information Value Date Recorded Sex Assigned at Not on file Legal Sex Male 1:31 PM EDT Gender Identity Not on file Sexual Orientation Not on file Obstetrics History Last Filed Vital Signs Vital Sign Reading Time Taken Comments Blood Pressure 160/70 06/24/2023 9:20 AM EST Pulse 62 06/24/2023 9:20 AM EST Temperature 36.3 C (97.3 F) 06/24/2023 8:15 AM EST Respiratory Rate 20 06/24/2023 9:20 AM EST Oxygen Saturation 98% 06/24/2023 9:20 AM EST Inhaled Oxygen Concentration - - Weight 78 kg (172 lb) 11/19/2023 10:30 AM EDT Height 172.7 cm (5' 8 ) 11/19/2023 10:30 AM EDT Body Mass Index 26.15 11/19/2023 10:30 AM EDT Plan of Treatment Health Maintenance Due Date Last Done Comments Wellness Exam Medicare 02/03/1953 Hepatitis C Screening 02/03/1966 DTaP/TDaP/Td (1 - Tdap) 02/03/1967 Zoster (1 of 2) 02/03/1998 Pneumococcal Vaccine 50+ (2 of 2 - PCV) 04/11/2012 04/11/2011 RSV or 60+ (1 - 1-dose 75+ series) 02/03/2023 COVID-19 Vaccine ( season) 2024 10/25/2020, 10/04/2020 Influenza Vaccine (#1) 2025 , 05/14/2023, 05/08/2022, Additional history exists Colon Cancer Screening Discontinued Colonoscopy Discontinued 10/28/2021, 06/25, 12/05/2010 Cologuard Discontinued FIT Discontinued Hepatitis B Vaccine Aged Out No longe r eligible based on patient's age to complete this topic Meningococcal B Vaccine Aged Out No l onger eligible based on patient's age to complete this topic Sigmoidoscopy Discontinued Virtual Colonography Discontinued Procedures Procedure Name Priority Date/Time Associated Diagnosis Comments [facility] COLONOSCOPY Routine 10/28/2021 8:00 AM EDT from Last 3 Months or Most Recently Relevant to Health Maintenance Results * [facility] COLONOSCOPY (10/28/2021 8:00 AM EDT) 10/28/2021 8:00 AM EDT Impressions [facility] - 10/28/2021 8:31 AM EDT Mild diverticulosis of the sigmoid colon. Polyps (4 mm to 6 mm) in the cecum. (Polypectomy). Polyps (5 mm to 7 mm) in the transverse colon. (Polypectomy). Internal and external hemorrhoids. Otherwise normal colonoscopy. Plan: Await pathology results Colonoscopy in 3 or 5 years depending on pathology results. Patient to follow-up with Primary Care Physician and/or Referring Physician This section is an excerpt of the full report. us Toni Cohen MD GI PROCEDURE ORDERAB LES Final Result Performing Organization Address City/State/[facility] Co de Phone Number [facility] [address] [place] [phone] from Last 3 Months or Most Recently Relevant to Health Maintenance Insurance MEDICARE PART A on file MEDICARE PART A on file MEDICARE PART A on file Advance Directives For more information, please contact: [phone] * Full Code (Latest Code Status on File) Date Activated Date Inactivated Comments 05/12/2019 3:07 PM 05/13/2019 8:57 PM Care Teams Transaction Processor Relationship Specialty Start Date End Date Terry Perez MD PCP - General 10/06/10 Jose Manrique MD Internal Medicine-Gastroenterology 09/15/13
--- OUTSIDE RECORDS SUMMARY | 2025-03-19 11:43 | XMS_ITS | Clinical Summary ---
Author Organization [facility] Address [address] [place] [address] Care Team Providers Care Sock Knitting Machine Operator Name Role Phone Terry Perez MD Primary Care Provider [phone] Allergies Active Allergy Reactions Criticality Noted Date Comments Atorvastatin Swelling 12/01/2011 Joint pain and swelling Penicillins Swelling 03/19/2011 Ecmisvw-Oww-Avo Reductase Inhibitors Swelling 12/01/2011 Causes joint swelling and joint pain Sulfa (Sulfonamide Antibiotics) Swelling 03/19/2011 Ezetimibe 01/01/2016 myaglias Medications aspirin 81 mg PO tablet Take 81 mg by mouth daily. Active albuterol (ALBUTEROL) 90 mcg/Actuation IN HFAA Take 2 Puffs by inhalation daily as needed. Active amLODIPine (NORVASC) 10 mg PO tablet Take 1 Tab by mouth daily. 90 Tab 3 3 Active esomeprazole (NEXIUM) 40 mg PO CpDR Take 40 mg by mouth daily. Active loratadine (CLARITIN) 10 mg tablet 10 mg daily. Active celecoxib (CELEBREX) 200 mg Capsule Take 1 Cap by mouth daily. 60 Cap 5 7 Active nitroglycerin (NITROSTAT) 0.[address] 1 Tab under tongue every 5 minutes as needed for Chest pain. 25 Tab 3 7 Active Hydrocodone-Acet aminophen (NORCO) 7.5-325 mg per tablet Take 1 Tab by mouth every 4 hours as needed. 0 8 Active losartan (COZAAR) 100 mg TabletIndication s:Essential hypertension TAKE 1/2 TABLET EVERY DAY 90 Tab 3 9 Active evolocumab (REPATHA SURECLICK) 140 mg/mL Pen Injector 140 mg by Subcutaneous route every 14 days. 2 Pen injector 11 9 Active Active Problems Problem Noted Date Diagnosed Date Chronic fatigue 02/08/2019 Primary insomnia 02/08/2019 Statin intolerance 02/09/2018 Osteoarthritis of spine with radiculopathy, cerv ical region 05/15/2016 Right arm weakness 05/15/2016 S/P cervical spinal fusion 05/15/2016 Acute bronchitis 11/07/2014 Cervical spine disease 11/01/2013 Transient global amnesia 04/12/2013 Chest pain 11/19/2012 Overview (04/26/2017): Replaced inactive diagnosis via diagnosis import Glucose intolerance (impaired glucose tolerance) 03/02/2012 Thrombocytopenia 03/02/2012 CAD (coronary artery disease ) (PCI LAD 2010, cath vasospasm 2011, PCI LAD 2011) 02/27/2012 History of tobacco abuse 02/27/2012 S/P coronary artery stent placement 12/02/2011 Dyslipidemia 12/02/2011 Essential hypertension 07/27/2011 Overview (10/16/2016): Replaced inactive diagnosis term via diagnosis import Coronary artery spasm 04/10/2011 Asthma 04/10/2011 GERD (gastroesophageal reflux disease) 1 Resolved Problems Problem Noted Date Diagnosed Date Resolved Date NSTEMI (non-ST elevated myoc ardial infarction) 12/02/2011 02/27/2012 Chest pain 07/27/2011 02/27/2012 Overview (04/26/2017): Replaced inactive diagnosis via diagnosis import Unstable angina 04/10/2011 02/27/2012 Immunizations Immunization Administration Dates Next Due Pneumococcal Polysaccharide 23 Valent (PNEUMOVAX ) 04/11/2011 Family History Medical History Relation Name Comments Cancer Brother Heart Problems Father Cancer Mother Rheumatoid Arthritis Mother Relation Name Status Comments Brother Father Mother Social History Tobacco Use Types [...] Sign Reading Time Taken Comments Blood Pressure 128/76 02/08/2019 9:47 AM EDT Pulse 69 02/08/2019 9:47 AM EDT Temperature 37.2 C (98.9 F) 08/14/2013 11:00 AM EST Respiratory Rate 14 08/14/2013 11:00 AM EST Oxygen Saturation 95% 08/14/2013 11:00 AM EST Inhaled Oxygen Concentration - - Weight 79.8 kg (176 lb) 02/08/2019 9:47 AM EDT Height 172.7 cm (5' 8 ) 02/08/2019 9:47 AM EDT Body Mass Index 26.76 02/08/2019 9:47 AM EDT Plan of Treatment Health Maintenance Due Date Last Done Comments Tetanus Vaccination (Every 1 0 Years) 02/03/1966 Hepatitis C Virus (HCV) Screening 02/03/1969 Zoster-RZV(Shingrix) (1 of 2) 02/03/1998 Pneumococcal Vaccine: 50+ Ye ars (2 of 2 - PCV) 04/11/2012 04/11/2011 Fall Risk Assessment 02/03/2013 Lipid Monitoring 02/22/2019 02/22/2018, , 12/02/2011, Additional history exists RSV Vaccines (1 - 1-dose 75+ series) 02/03/2023 COVID-19 Vaccine (1 - 2023-2 5 season) 2024 Advance Care Planning 07/26/2024 Depression Screening 07/26/2024 Influenza Vaccination (#1) 2025 09/03/2006 Influenza Vaccination (Yearly) Discontinued 09/03/2006 Lipid Screening Discontinued 02/22/2018, 10/25, 09/26/2012, Additional history exists Procedures Procedure Name Priority Date/Time Associated Diagnosis Comments HBL-LIPID REFX Routine 02/22/2018 9:48 AM EDT from Last 3 Months or Most Recently Relevant to Health Maintenance Results * (ABNORMAL) HBL-LIPID REFX (02/22/2018 9:48 AM EDT) Cholesterol 216(H) <=200 mg/dL 02/22/2018 4:[address] [facility] Comment: Cholesterol [Mass/volume] in Serum or Plasma < 200 Iapspnian760 - 239 Borderline High>= 240 High Triglycerides 84 <=150 mg/dL 02/22/2018 4:[address] [facility] Comment: Triglyceride [Mass/volume] in Serum or Plasma < 150 Zcujwa140 - 199 Borderline Rgsq039 - 499 High >= 500 Very High HDL 100 >=40 mg/dL 02/22/2018 4:[address] [facility] Comment: Cholesterol in HDL [Mass/volume] in Serum or Plasma > 60 Gsssrvc07 - 60 Acceptable < 40 Low Cholesterol in LDL [Mass/volume] in Serum or Plasma by calculation 99 <=100 mg/dL 02/22/2018 4:[address] [facility] Comment:Cholesterol in LDL [ Mass/volume] in Serum or Plasma by calculation Non HDL Cholesterol 116 <=129 mg/dL 02/22/2018 4:[address] [facility] Comment: Cholesterol non HDL [Mass/volume] in Serum or Plasma <130 [id number] Above Jiuatkpau194-817 Borderline Bkzb327-214 High>= 220 Very High 02/22/2018 9:[address] [facility] - 02/22/2018 4:04 PM EDT Fax results to [phone] Jai Craft MD [facility] Final Result [facility] from Last 3 Months or Most Recently Relevant to Health Maintenance Insurance NISHA ANTHEM ANTHEM Advance Directives For more information, please contact: [phone] * Full Code (Latest Code Status on File) Date Activated Date Inactivated Comments 08/13/2013 7:36 PM 08/14/2013 6:58 PM * Full Code Date Activated Date Inactivated Comments 11/19/2012 11:54 PM 11/20/2012 3:42 PM * Full Code Date Activated Date Inactivated Comments 12/02/2011 11:26 AM 12/03/2011 5:48 PM * Full Code Date Activated Date Inactivated Comments 12/02/2011 8:07 AM 12/02/2011 11:26 AM * Full Code Date Activated Date Inactivated Comments 12/01/2011 10:59 PM 12/02/2011 8:07 AM Care Teams Sock Knitting Machine Operator Relationship Specialty Start Date End Date Terry Perez MD PCP - General Family Medicine 03/16/11
--- OUTSIDE RECORDS SUMMARY | 2025-03-19 11:43 | XMS_ITS | Clinical Summary ---
Author Organization [facility] Address [address] [place] [address] Care Team Providers Care Minor League Baseball Player Name Role Phone Unavailable Primary Care Provider Unavailabl e Source Comments [facility] is fully rolled out with thefollowing exceptions:General Clinical [facility] Social History Tobacco Use Types Packs/Day Years Used Date Smoking Tobacco: Never Assessed Sex and Gender Information Value Date Recorded Sex Assigned at Not on file Legal Sex Male 5:19 AM EST Gender Identity Not on file Sexual Orientation Not on file Plan of Treatment Health Maintenance Due Date Last Done Comments MMR IMMUNIZATION (1 of 1 - S tandard series) 02/03/1951 DTAP/Tdap/Td IMMUNIZATION (1 - Tdap) 02/03/1955 VARICELLA IMMUNIZATION (1 of 2 - 13+ 2-dose series) 02/03/1961 Respiratory Syncytial Virus (RSV) >60yo or (1 - 1-dose 75+ series) 02/03/2023 COVID-19 Vaccine ( - 2023-2 5 season) 2024 AMB SEASONAL FLU VACCINE (#1) 05/26/2025 HEPATITIS B IMMUNIZATION Aged Out No longer eligible based on patient's age to complete this topic HIB IMMUNIZATION Aged Out No longer e ligible based on patient's age to complete this topic HPV IMMUNIZATION Aged Out No longer e ligible based on patient's age to complete this topic IPV IMMUNIZATION Aged Out No longer e ligible based on patient's age to complete this topic MCV4 IMMUNIZATION Aged Out No longer eligible based on patient's age to complete this topic MENINGOCOCCAL B VACCINE Aged Out No l onger eligible based on patient's age to complete this topic Respiratory Syncytial Virus (RSV) <20mo Aged Out No longer eligible b ased on patient's age to complete this topic
== END 2025-03-16 23:59 | disposition home or self-care (01) ==
LOC: LAB.DROPOF 03-19 11:01
PROVIDERS: PCP Nurse Practitioner Family; Visit Provider Nurse Practitioner Family
DX: R30.0 Dysuria (principal)
CPT/HCPCS: 87086

== ENCOUNTER 2025-04-27 09:05 | Outpatient (CLI) | payer MEDICARE, SELFPAY ==
--- OUTSIDE RECORDS SUMMARY | 2006-08-10 01:00 | XMS_ITS | Encounter Summary ---
Author Organization [facility] Address [address] [place] [address] Care Team Providers Care Welder Apprentice Name Role Phone Unavailable Primary Care Provider Unavailabl e Encounter Details Date Type Department Care Team (Late st Contact Info) Description 08/10/[address] [facility] Division of Orthopaedics [address] [place] [phone] Social History Tobacco Use Types Packs/Day [...]
--- OUTSIDE RECORDS SUMMARY | 2006-09-14 01:00 | XMS_ITS | Encounter Summary ---
Author Organization [facility] Address [address] [place] [address] Care Team Providers Care Medical Office Supervisor Name Role Phone Unavailable Primary Care Provider Unavailabl e Encounter Details Date Type Department Care Team (Late st Contact Info) Description 09/14/2006 Hospital Encounter [facility] Division of Orthopaedics [address] [place] [phone] Social History Tobacco Use Types Packs/Day [...]
--- OUTSIDE RECORDS SUMMARY | 2006-11-23 | XMS_ITS | Encounter Summary ---
Author Organization [facility] Address [address] [place] [address] Care Team Providers Care Clinical Data Specialist Name Role Phone Unavailable Primary Care Provider Unavailabl e Encounter Details Date Type Department Care Team (Late st Contact Info) Description 11/23/2006 Hospital Encounter [facility] Division of Orthopaedics [address] [place] [phone] Social History Tobacco Use Types Packs/Day [...]
[2025-04-27 15:12] LABS: Hematocrit 37.0 % (42.0-52.0); Hemoglobin 12.4 g/dL (14.1-18.0); Immature Granulocytes % 0.3 %; Mean Corpuscular HGB Conc 33.5 g/dL (31.8-35.4); Mean Corpuscular Hemoglobin 32.2 pg (27.0-31.2); Mean Corpuscular Volume 96.1 fl (80-94); Nucleated Red Blood Cells % 0 %; Platelet Count 163 K/mm3 (142-424); Red Blood Count 3.85 M/mm3 (4.60-6.20); Red Cell Distribution Width-SD 43.5 fL; White Blood Count 2.9 K/mm3 (4.8-10.8)
[2025-04-27 16:22] LABS: Alanine Aminotransferase 38 U/L (12-78); Albumin Level 4.2 g/dl (3.5-5.0); Albumin/Globulin Ratio 2.2 (1.1-1.8); Alkaline Phosphatase 348 U/L (38-126); Anion Gap 13.8 mEq/L (5-15); Aspartate Amino Transferase 26 U/L (17-59); Bilirubin,Total 1.1 mg/dl (0.2-1.3); Blood Urea Nitrogen 15 mg/dl (9-20); Calcium 9.8 mg/dl (8.4-10.2); Carbon Dioxide 29 mmol/L (22.0-30.0); Chloride 98 mmol/L (98-107); Cholesterol 202 mg/dl (140-200); Creatinine,Serum 0.70 mg/dl (0.66-1.25); Estimated Glomerular Filt Rate 109 ml/min (>60); GFR (African American) 132 ML/MIN (>60); Globulin 1.9 g/dL (1.3-3.2); Glucose 107 mg/dl (74-100); HDL Cholesterol 61 mg/dl (40-60); Potassium 4.8 mmoL/L (3.5-5.1); Sodium 136 mmol/L (136-145); Total Protein,Serum 6.1 g/dl (6.3-8.2); Triglycerides 119 mg/dl (30-150)
[2025-04-27 16:42] LABS: Hepatitis C Ab Qual. W/ RFX NEGATIVE (Negative)
[2025-04-27 16:55] LABS: Thyroid Stimulating Hormone 0.50 uIU/mL (0.465-4.68)
--- OUTSIDE RECORDS SUMMARY | 2025-04-30 09:13 | XMS_ITS | Clinical Summary ---
Author Organization [facility] Address [address] [place] [address] Care Team Providers Care Stable Cleaner Name Role Phone Terry Perez MD Primary Care Provider [phone] Source Comments This information has been disclosed [...] therelease of HIV test results or diagnoses. [id number] Allergies Active Allergy Reactions Criticality Noted Date Comments Atorvastatin Swelling 05/19/2016 Joint pain and swelling Ezetimibe 05/19/2016 myaglias Penicillin Swelling 05/19/2016 Gaiygck-Dlx-Wqb Reductase Inhibitors Swelling 05/19/2016 Causes joint swelling [...] 75+ series) 02/03/2023 Immunization: COVID-19 (3 - season) 2025 10/25/2020, 10/04/2020 Immunization: Influenza (MyC crenshaw) (#1) 2025 05/05/2024, 05/14/2023, 05/08/2022, Additional history exists Insurance MEDICARE A Member Subscriber Plan / Payer (Ef fective 2013-Present) Name:Rupert Ward Relation to Subscriber:Self Name:Rupert Ward Payer ID:[id number] Group ID:Not on file Type:Medicare Address: [facility] [id number] [address] ACCESS Care Teams Stable Cleaner Relationship Specialty Start Date End Date Terry Perez MD [address] [address] PCP - General Family Medicine 11/01/13
--- OUTSIDE RECORDS SUMMARY | 2025-04-30 09:13 | XMS_ITS | Clinical Summary ---
Author Organization [facility] Address [address] [place] [address] Care Team Providers Care Telephoto Engineer Name Role Phone Unavailable Primary Care Provider Unavailabl e Source Comments [facility] is fully rolled out with thefollowing exceptions:General Clinical Research [facility] Social History Tobacco Use Types Packs/Day Years [...] or (1 - 1-dose 75+ series) 02/03/2023 AMB SEASONAL FLU VACCINE (#1) 03/26/2025 COVID-19 Vaccine ( - 2023-2 5 season) 2025 HEPATITIS B IMMUNIZATION Aged Out No longer [...]
--- OUTSIDE RECORDS SUMMARY | 2025-04-30 09:13 | XMS_ITS | Encounter Summary ---
Author Organization [place] [address] Care Team Providers Care Wafer Slicer Name Role Phone Terry Perez MD Primary Care Provider [phone] Jose Manrique MD Unavailable Unavailable Encounter Details Date Type Department Care Team (Late st Contact Info) Description 10/13/2013 Orders Only [facility] [place] [address] [facility] [address] [place] [address] Jose Manrique MD Social History [...] AM EDT) 10/13/2013 7:30 AM EDT Impressions [facility] - 10/13/2013 7:56 AM EDT Normal esophagus. Normal stomach. Normal duodenum. This section is an excerpt of the full report. us Jose Manrique MD GI PROCEDURE ORDERABLES Final R esult [facility] [address] [place] [address] documented in this encounter Visit Diagnoses Not on filedocumented in this encounter Care Teams Wafer Slicer Relationship Specialty Start Date End Date Terry Perez MD PCP - General 10/06/10 Jose Manrique MD Internal Medicine-Gastroenterology 09/15/13 documented as of this encounter
--- OUTSIDE RECORDS SUMMARY | 2025-04-30 09:13 | XMS_ITS | Clinical Summary ---
Author Organization [facility] [place] Address [address] [facility] [address] [place] [address] Phone Care Team Providers Care Ios Software Engineer Name Role Phone Terry Perez MD Primary Care Provider [phone] Jose Manrique MD Unavailable Unavailable Allergies Active Allergy Reactions Criticality Noted Date Comments Meloxicam Other (See Comments) High 06/22/2023 LIVER ENZYMES ELEVATED, VERY SICK Penicillins Swelling Medium 09/15/2013 Patient states that he also had redness of the skin *(Patient states on 05/12/19, that he has had AMOXICILLIN with no issues)* Bzjzhza-Fcc-Giw Reductase Inhibitors Swelling,Myalgia Medium 05/12/2019 Patient states [...] Active fluticasone propionate (FLONASE) 50 mcg/actuation Nasl G[place], Suspension 1 Grafton in each nostril daily. Active Active Problems Problem Noted Date Diagnosed Date Mass of soft tissue of neck 09/23/2022 Screening for colon cancer 09/02/2021 Overview (09/02/2021): Added automatically from request for surgery [id number] Acute chest pain 05/13/2019 Coronary artery disease invo lving alutiiq coronary artery of alutiiq heart with unstable angina pectoris 05/12/2019 Mild [...] - 1-dose 75+ series) 02/03/2023 COVID-19 Vaccine (3 - season) 2025 10/25/2020, 10/04/2020 Influenza Vaccine (#1) 2025 , [...] AM EDT) 10/28/2021 8:00 AM EDT Impressions [facility] - 10/28/2021 8:31 AM EDT Mild [...] MD GI PROCEDURE ORDERAB LES Final Result [facility] [address] [place] [phone] from Last 3 Months or Most Recently Relevant to Health Maintenance Insurance MEDICARE PART A on file MEDICARE PART A HB on file MEDICARE PART A on file Advance Directives For more information, please contact: [phone] * Full Code (Latest Code Status on File) Date Activated Date Inactivated Comments 05/12/2019 3:07 PM 05/13/2019 8:57 PM Care Teams Ios Software Engineer Relationship Specialty Start Date End Date Terry Perez MD PCP - General 10/06/10 Jose Manrique MD Internal Medicine-Gastroenterology 09/15/13
--- OUTSIDE RECORDS SUMMARY | 2025-04-30 09:13 | XMS_ITS | Clinical Summary ---
Author Organization [facility] Address [address] [place] [address] Care Team Providers Care Prototype Model Maker Name Role Phone Terry Perez MD Primary Care Provider [phone] Allergies Active Allergy Reactions Criticality Noted Date Comments Atorvastatin Swelling 12/01/2011 Joint pain and swelling Penicillins Swelling 03/19/2011 Fveamiu-Wzk-Uth Reductase Inhibitors Swelling 12/01/2011 Causes joint swelling [...] Vaccines (1 - 1-dose 75+ series) 02/03/2023 Advance Care Planning 07/26/2024 Depression Screening 07/26/2024 COVID-19 Vaccine (1 - 2023-2 5 season) 2025 Influenza Vaccination (#1) 2025 09/03/2006 Influenza Vaccination [...] [Mass/volume] in Serum or Plasma < 200 Mloidozli838 - 239 Borderline High>= 240 High Triglycerides 84 <=150 mg/dL 02/22/2018 4:[address] [facility] Comment: Triglyceride [Mass/volume] in Serum or Plasma < 150 Vwkkby623 - 199 Borderline Szqs896 - 499 High >= 500 Very High HDL 100 >=40 mg/dL 02/22/2018 4:[address] [facility] Comment: Cholesterol in HDL [Mass/volume] in Serum or Plasma > 60 Vqohqly62 - 60 Acceptable < 40 Low Cholesterol in LDL [Mass/volume] in Serum or Plasma by calculation 99 <=100 mg/dL 02/22/2018 4:[address] [facility] Comment:Cholesterol in LDL [ Mass/volume] in Serum or Plasma by calculation Non HDL Cholesterol 116 <=129 mg/dL 02/22/2018 4:[address] [facility] Comment: Cholesterol non HDL [Mass/volume] in Serum or Plasma <130 [id number] Above Rxklbnalo506-391 Borderline Dbcp953-196 High>= 220 Very High 02/22/2018 9:[address] [facility] - 02/22/2018 4:04 PM EDT Fax results to [phone] Jai Craft MD [facility] RESULT[facility] O NLY Final Result [facility] from Last 3 Months or Most Recently Relevant to Health Maintenance Insurance NISHA ANTHEM ANTHEM Advance Directives For more information, please contact: [phone] * Full Code (Latest Code Status on [...] 10:59 PM 12/02/2011 8:07 AM Care Teams Prototype Model Maker Relationship Specialty Start Date End Date Terry Perez MD PCP - General Family Medicine 03/16/11
--- OUTSIDE RECORDS SUMMARY | 2025-04-30 09:13 | XMS_ITS | Encounter Summary ---
Author Organization [facility] Address [address] [place] [address] Care Team Providers Care Chair Car Driver Name Role Phone Terry Perez MD Primary Care Provider [phone] Encounter Details Date Type Department Care Team (Late st Contact Info) Description 04/23/2016 Abstract [facility] Physicians - Spine Surgery, [place] [address] [place] [address] Ambulatory, Machine Sand Mixer Social History Tobacco Use Types Packs/Day Years [...] on filedocumented in this encounter Care Teams Chair Car Driver Relationship Specialty Start Date End Date Terry Perez MD PCP - General Family Medicine 03/16/11 documented as of this encounter
--- OUTSIDE RECORDS SUMMARY | 2025-04-30 09:13 | XMS_ITS | Clinical Summary ---
Author Organization [facility] Address [address] [place] [address] Care Team Providers Care Electronic Communications Technician Name Role Phone Terry Perez MD Primary Care Provider [phone] Allergies Active Allergy Reactions Criticality Noted Date [...] age to complete this topic Insurance [id number] [employer] [facility] [place] Remind ALL OTHERS NOT MEDICARE Care Teams Electronic Communications Technician Relationship Specialty Start Date End Date Terry Perez MD PCP - General Family Medicine 07/21/16
== END 2025-04-27 23:59 ==
LOC: LAB.DROPOF 04-30 09:05
PROVIDERS: PCP Family Medicine; Visit Provider Family Medicine
DX: E78.5 Hyperlipidemia, unspecified (principal); Z12.5 Encounter for screening for malignant neoplasm of prostate; I10 Essential (primary) hypertension; Z11.59 Encounter for screening for other viral diseases
CPT/HCPCS: 80053; 80061; 84443; 85025; 86803; 87389

== ENCOUNTER 2025-05-18 10:23 | Outpatient (CLI) | payer MEDICARE, SELFPAY ==
--- OUTSIDE RECORDS SUMMARY | 2006-08-10 01:00 | XMS_ITS | Encounter Summary ---
Author Organization [facility] Address [address] [place] [address] Care Team Providers Care Contract Runner Name Role Phone Unavailable Primary Care Provider Unavailabl e Encounter Details Date Type Department Care Team (Late st Contact Info) Description 08/10/2006 Hospital Encounter [facility] Division of Orthopaedics [address] [place] [phone] Social History Tobacco Use Types Packs/Day Years Used Date Smoking Tobacco: Never Assessed Sex and Gender Information Value Date Recorded Sex Assigned at Not on file Legal Sex Male 5:19 AM EST Gender Identity Not on file Sexual Orientation Not on file documented as of this encounter Plan of Treatment Not on file documented as of this encounter Visit Diagnoses Not on filedocumented in this encounter
--- OUTSIDE RECORDS SUMMARY | 2006-09-14 01:00 | XMS_ITS | Encounter Summary ---
Author Organization [facility] Address [address] [place] [address] Care Team Providers Care Portable Sawmill Operator Name Role Phone Unavailable Primary Care Provider Unavailabl e Encounter Details Date Type Department Care Team (Late st Contact Info) Description 09/14/2006 Hospital Encounter [facility] Division of Orthopaedics [address] [place] [phone] Social History Tobacco Use Types Packs/Day [...]
--- OUTSIDE RECORDS SUMMARY | 2006-11-23 | XMS_ITS | Encounter Summary ---
Author Organization [facility] Address [address] [place] [address] Care Team Providers Care Priming Machine Operator Name Role Phone Unavailable Primary Care Provider Unavailabl e Encounter Details Date Type Department Care Team (Late st Contact Info) Description 11/23/2006 Hospital Encounter [facility] [place] [facility] Division of Orthopaedics [address] [place] [phone] Social History Tobacco Use Types Packs/Day [...] agrees with this report. us Parth Rausch MD DIAGNOSTIC IMAGING ORDERABLES Final Result documented in this encounter Visit Diagnoses Not on filedocumented in this encounter
--- OUTSIDE RECORDS SUMMARY | 2025-05-03 13:30 | XMS_ITS | Encounter Summary ---
Author Organization [place] [address] Care Team Providers Care Manager Sales And Marketing Name Role Phone Terry Perez MD Primary Care Provider [phone] Jose Manrique MD Unavailable Unavailable Reason for Visit * Reason Comments New Patient previously seen at [facility] for history of coronary artery disease that includes remote angioplasty and stenting to the LAD. * Consultation (Routine) - Pending Review Specialty Diagnoses / Procedures Referred By Contac t Referred To Contact Internal Medicine-Cardiovascular Disease / Cardiology Diagnoses PCP REF Procedures NEW PATIENT [facility] [address] [address] Phone: tel: Go Mendez DO [address] [place] [address] Phone: tel: fax: Referral ID Status Reason Start Date Expiration Date V isits Requested Visits Authorized [id number] Pending Review 05/03/2025 05/03/2026 99 99 Encounter Details Date Type Department Care Team (Late st Contact Info) Description 05/03/2025 1:30 PM EDT Office Visit [facility] [place] [address] [place] [address] Go Mendez DO [address] [place] [address] Encounter to establish care with new provider (Primary Dx); S/P coronary artery stent placement; Coronary artery disease involving [place] coronary artery of [place] heart without angina pectoris; APC (atrial premature contractions); Essential hypertension Social History Tobacco Use Types Packs/Day Years [...] on file documented as of this encounter Last Filed Vital Signs Vital Sign Reading Time Taken Comments Blood Pressure 122/60 05/03/2025 1:06 PM EDT Pulse 70 05/03/2025 1:06 PM EDT Temperature - - Respiratory Rate - - Oxygen Saturation 98% 05/03/2025 1:06 PM EDT Inhaled Oxygen Concentration - - Weight 78 kg (172 lb) 05/03/2025 1:06 PM EDT Height 172.7 cm (5' 8 ) 05/03/2025 1:06 PM EDT Body Mass Index 26.15 05/03/2025 1:06 PM EDT documented in this encounter Progress Notes * Go Mendez DO - 05/03/2025 1:30 PM EDT Images from the original note were not included. [facility] [place] Chief complaint: Abnormal EKG Subjective HPI I had the pleasure of seeing Rupert today. He presented with his . The patient is a very pleasant 75 y.o. male who presents to [facility]. He was referred by his PCP for an abnormal EKG which was thought to be atrial fibrillation. He was started on Eliquis for stroke prevention. He denies chest pain, shortness of breath or palpitations. He reports some intermittent fatigue. Past Medical History[1] Surgical History[2] reports that he quit smoking about 43 years ago. His smoking use included cigarettes. He has never used smokeless tobacco. He reports that he does not currently use alcohol. He reports that he does not currently use drugs. Family History[3] Allergies Meloxicam, Qymludr-dux-mts reductase inhibitors, and Sulfa (sulfonamide antibiotics) Medications Current Medications[4] Objective: Vitals: 05/03/25 1306 BP: 122/60 Pulse: 70 SpO2: 98% Weight: 172 lb (78 kg) Height: 5' 8 (1.727 m) BSA: Estimated body surface area is 1.92 meters squared as calculated from the following: Height as of this encounter: 5' 8 (1.727 m). Weight as of this encounter: 172 lb (78 kg). BMI: Estimated body mass index is 26.15 kg/m?? as calculated from the following: Height as of this encounter: 5' 8 (1.727 m). Weight as of this encounter: 172 lb (78 kg). Physical Exam General: Alert and oriented ??3, in no acute distress HEENT: Atraumatic, normocephalic moist mucous membranes NECK: No JVD, carotid upstroke is brisk and normal Heart: Regular rate and rhythm, no gallops rubs or murmurs Lungs: Nonlabored respirations, clear to auscultation bilaterally, no wheezes rales or rhonchi Abdomen: Soft nontender nondistended Extremities: No cyanosis clubbing or edema, well-perfused Skin: Warm, dry no rash, no cyanosis or clubbing Lab Results Component Value Date HDL 76 04/10/2022 HDL 68 05/09/2021 HDL 84 05/10/2020 Lab Results Component Value Date CHOLESTEROL 224 (H) 04/10/2022 CHOLESTEROL 190 05/09/2021 CHOLESTEROL 210 (H) 05/10/2020 Lab Results Component Value Date LDLCALC 130 (H) 04/10/2022 LDLCALC 108 (H) 05/09/2021 LDLCALC 107 (H) 05/10/2020 Lab Results Component Value Date TRIG 101 04/10/2022 TRIG 74 05/09/2021 TRIG 97 05/10/2020 Lab Results Component Value Date ALT 23 04/10/2022 AST 22 04/10/2022 Sodium (mmol/L) Date Value 06/22/2023 136 Potassium (mmol/L) Date Value 06/22/2023 4.6 Chloride (mmol/L) Date Value 06/22/2023 100 Total CO2 (mmol/L) Date Value 06/22/2023 26 Anion Gap (mmol/L) Date Value 06/22/2023 10 Calcium (mg/dL) Date Value 06/22/2023 9.5 Glucose Lvl (mg/dL) Date Value 06/22/2023 108 (H) BUN (mg/dL) Date Value 06/22/2023 14 Creatinine (mg/dL) Date Value 06/22/2023 0.87 GFR Afr Am (mL/min/1.73 m2) Date Value 05/09/2021 96 GFR Non Afr Am (mL/min/1.73 m2) Date Value 05/09/2021 83 eGFR (CKD-EPIcr 2020) (mL/min/1.73 m2) Date Value 06/22/2023 90 Lab Results Component Value Date WBC 3.4 (L) 04/10/2022 HGB 13.3 (L) 04/10/2022 HCT 39.0 (L) 04/10/2022 MCV 95.4 04/10/2022 PLT 153 (L) 04/10/2022 Last results for Hgb A1C and Microalbumin: Hgb A1C Date Value Ref Range Status 05/12/2019 5.4 4.2 - 5.6 % Final EC05/03/2025, sinus rhythm with PAC CATH: 05/13/2019-patent coronary vessels, patent LAD stents. I personally reviewed most recent CBC, BMP, AST, ALT, and lipid panel. I also reviewed the most recent ECG, ECHO and other imaging tests. Assessment and Plan: PAC EKG reviewed including those from PCPs office. There is no evidence of atrial fibrillation. He is in sinus rhythm with PACs. Discontinue Eliquis. I did discuss with the patient and his that he could still be at risk for atrial fibrillation given his age and premature atrial complexes. We discussed risk factors for atrial fibrillation and how to mitigate these. CAD s/p PCI to LAD No angina. Continue aspirin. Not on statin therapy. Goal LDL would be less than 70 mg/dL. Currentlybeing evaluated for elevated alkaline phosphatase. Liver enzymes are normal. Patent stent in 2019. Hypertension Continue amlodipine and losartan. Fatty liver-follow with PCP Elevated alkaline hvyhmndxmqr-ylnftz-vd with PCP Rupert will follow up as needed/1 year. 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 [2] Past Surgical History: Procedure Laterality Date AORTA SURGERY 2011 aortic stent CARPAL TUNNEL RELEASE CERVICAL SPINE SURGERY CAGE IN ANTERIOR NECK C2-4 COLONOSCOPY COLONOSCOPY N/A 07/10/2016 COLONOSCOPY with snare polypectomy; Surgeon: Jai Estes MD; Location: [facility]; Service: Endoscopy COLONOSCOPY N/A 10/28/2021 Colonoscopy with polypectomies via cold snare; Surgeon: Toni Cohen MD; Location: ED ENDOSCOPY; Service: Endoscopy HAND SURGERY HERNIA REPAIR SOFT TISSUE BIOPSY N/A 06/24/2023 Excision of posterior neck cyst; Surgeon: Otto Diaz DO; Location: [facility] OR; Service: General UPPER GASTROINTESTINAL ENDOSCOPY [3] Family History Problem Relation Age of Onset Cancer Mother lung Heart Disease Father Colon Polyps Brother Anesth Problems Neg Hx [4] Current Outpatient Medications Medication Sig Dispense Refill albuterol (PROVENTIL HFA;VENTOLIN HFA) 90 mcg/actuation Inhl HFA Aerosol Inhaler Inhale 2 Puffs into the lungs daily as needed. albuterol (PROVENTIL) 2.5 mg /3 mL (0.083 %) Inhl Solution for Nebulization 2.5 mg every 6 hours asneeded. Indications: Asthma 10 amLODIPine (NORVASC) 10 mg Oral Tablet Take 10 mg by mouth daily. aspirin 81 mg tablet Take 81 mg by mouth daily. Indications: Heart celecoxib (CELEBREX) 200 mg Oral Capsule Take 200 mg by mouth daily. 3 cetirizine (ZYRTEC) 10 mg Oral Tablet Take 10 mg by mouth daily. cyanocobalamin 1,000 mcg/mL Inj Solution 100 mcg. esomeprazole (NEXIUM) 40 mg Oral Capsule, Delayed Release(E.C.) Take 40 mg by mouth daily. Indications: gastroesophageal reflux disease fluticasone propionate (FLONASE) 50 mcg/actuation Nasl [place], Suspension 1 [place] in each nostril daily. HYDROcodone-acetaminophen (NORCO) 10-325 mg Oral Tablet take one (1) tablet by mouth every eight (8) hours as needed for pain losartan (COZAAR) 50 mg Oral Tablet Take 50 mg by mouth daily. montelukast (SINGULAIR) 10 mg Oral Tablet Take 10 mg by mouth daily. nitroGLYCERIN (NITROSTAT) 0.4 mg SL Tablet, Sublingual Place 0.4 mg under the tongue every 5 minutes as needed for Chest pain. (Max 3 tablets in 15 min's, if no relief, call 911) Syringe with Needle, Disp, 3 mL 22 gauge x 1 Misc Syringe tamsulosin (FLOMAX) 0.4 mg Oral Capsule 0.4 mg. No current facility-administered medications for this visit. documented in this encounter Miscellaneous Notes * Patient Instructions - Mercy Dobson MA - 05/03/2025 1:30 PM EDT You may receive a survey via phone, mail or e-mail, regarding your visit today. Your feedback is important to us. You saw Dr. Mendez and her MA Mercy today. We depend on your feedback to make anynecessary improvements and/or staff recognition. We sincerely thank you for the opportunity to be apart of your care. Thank You for choosing [facility] If you have any questions or concerns please call [phone] documented in this encounter Plan of Treatment Not on file documented as of this encounter Procedures Procedure Name Priority Date/Time Associated Diagnosis Comments POCT EKG Routine 05/03/2025 1:08 PM EDT Encounter to establish care with new provider documented in this encounter Results * (ABNORMAL) POCT EKG (05/03/2025 1:08 PM EDT) 05/03/2025 1:08 PM EDT Impressions SEP OFFICE - 05/03/2025 1:08 PM EDT Sinus rhythm APC us Go Mendez DO POINT OF CARE CARDIOLOGY Fi nal Result SEP OFFICE documented in this encounter Visit Diagnoses Diagnosis Encounter to establish care with new provider- Primary S/P coronary artery stent placement Postsurgical percutaneous transluminal coronary angioplasty status Coronary artery disease involving newtok coronary artery of [place] heart without angina pectoris APC (atrial premature contractions) Supraventricular premature beats Essential hypertension Unspecified essential hypertension documented in this encounter Discontinued Medications Medication Sig Discontinue Reason Start Date End Da te ranitidine (ZANTAC) 150 mg tablet Take 150 mg by mouth daily as needed for Heartburn. Patient Reported not taking medication 05/03/2025 losartan (COZAAR) 100 mg Oral Tablet Take 50 mg by mouth daily. Patient Reported not taking medication 05/03/2025 loratadine (CLARITIN) 10 mg Oral Tablet Take 10 mg by mouth daily. Patient Reported not taking medication 05/03/2025 HYDROcodone-acetamin ophen (NORCO) 7.5-325 mg Oral Tablet Take 1 Tab by mouth every 6 hours as needed for Acute Pain (R52). Patient Reported not taking medication 05/03/2025 evolocumab 140 mg/mL SubQ Pen Injector Subcutaneous (Inject under the skin) 140 mg every 14 days. Patient Reported not taking medication 03/16/2019 05/03/2025 ELIQUIS 5 mg Oral Tablet Take 5 mg by mouth 2 times daily. Cancelled by 04/27/2025 05/03/2025 documented as of this encounter Historical Medications * This list may reflect changes made after this encounter. losartan (COZAAR) 50 mg Oral Tablet Take 50 mg by mouth daily. 02/15/2025 HYDROcodone-aceta minophen (NORCO) 10-325 mg Oral Tablet take one (1) tablet by mouth every eight (8) hours as needed for pain 04/27/2025 tamsulosin (FLOMAX) 0.4 mg Oral Capsule 0.4 mg. 02/23/2025 Syringe with Needle, Disp, 3 mL 22 gauge x 1 Misc Syringe 09/11/2024 cyanocobalamin 1,000 mcg/mL Inj Solution 100 mcg. 09/01/2024 ELIQUIS 5 mg Oral Tablet Take 5 mg by mouth 2 times daily. 04/27/2025 05/03/2025 added in this encounter Care Teams Manager Sales And Marketing Relationship Specialty Start Date End Date Terry Perez MD PCP - General 10/06/10 Jose Manrique MD Internal Medicine-Gastroenterology 09/15/13 documented as of this encounter
[2025-05-18 15:01] LABS: Hematocrit 34.9 % (42.0-52.0); Hemoglobin 11.7 g/dL (14.1-18.0); Immature Granulocytes % 0.4 %; Mean Corpuscular HGB Conc 33.5 g/dL (31.8-35.4); Mean Corpuscular Hemoglobin 32.2 pg (27.0-31.2); Mean Corpuscular Volume 96.1 fl (80-94); Nucleated Red Blood Cells % 0 %; Platelet Count 130 K/mm3 (142-424); Red Blood Count 3.63 M/mm3 (4.60-6.20); Red Cell Distribution Width-SD 43.7 fL; White Blood Count 2.4 K/mm3 (4.8-10.8)
[2025-05-18 15:05] LABS: Albumin Level 3.8 g/dl (3.5-5.0); Chloride 101 mmol/L (98-107); Potassium 4.6 mmoL/L (3.5-5.1); Sodium 133 mmol/L (136-145)
[2025-05-18 15:08] LABS: Alanine Aminotransferase 38 U/L (12-78); Albumin/Globulin Ratio 1.7 (1.1-1.8); Alkaline Phosphatase 275 U/L (38-126); Anion Gap 7.6 mEq/L (5-15); Aspartate Amino Transferase 42 U/L (17-59); Bilirubin,Total 0.7 mg/dl (0.2-1.3); Blood Urea Nitrogen 14 mg/dl (9-20); Carbon Dioxide 29 mmol/L (22.0-30.0); Creatinine,Serum 0.70 mg/dl (0.66-1.25); Estimated Glomerular Filt Rate 109 ml/min (>60); GFR (African American) 132 ML/MIN (>60); Globulin 2.2 g/dL (1.3-3.2); Total Protein,Serum 6.0 g/dl (6.3-8.2)
[2025-05-18 15:09] LABS: Calcium 9.0 mg/dl (8.4-10.2); Glucose 100 mg/dl (74-100)
--- OUTSIDE RECORDS SUMMARY | 2025-05-21 10:34 | XMS_ITS | Encounter Summary ---
Author Organization [facility] Address [address] [place] [address] Care Team Providers Care Magazine Supervisor Name Role Phone Terry Perez MD Primary Care Provider [phone] Encounter Details Date Type Department Care Team (Late st Contact Info) Description 04/23/2016 Abstract [facility] Physicians - Spine Surgery, [place] [address] [place] [address] Ambulatory, Furniture Sander Social History Tobacco Use Types Packs/Day Years [...] on filedocumented in this encounter Care Teams Magazine Supervisor Relationship Specialty Start Date End Date Terry Perez MD PCP - General Family Medicine 03/16/11 documented as of this encounter
--- OUTSIDE RECORDS SUMMARY | 2025-05-21 10:34 | XMS_ITS | Encounter Summary ---
Author Organization [facility] [place] [address] Care Team Providers Care Braille Duplicating Machine Operator Name Role Phone Terry Perez MD Primary Care Provider [phone] Jose Manrique MD Unavailable Unavailable Encounter Details Date Type Department Care Team (Latest Contact Info) Description 05/02/2025 Travel Social History Tobacco Use Types Packs/Day Years Used Date Smoking Tobacco: Former Cigarettes Q uit: 07/26/1981 Smokeless Tobacco: Never Alcohol Use Standard Drinks/Week Comments Not Currently [...] on filedocumented in this encounter Care Teams Braille Duplicating Machine Operator Relationship Specialty Start Date End Date Terry Perez MD PCP - General 10/06/10 Jose Manrique MD Internal Medicine-Gastroenterology 09/15/13 documented as of this encounter
--- OUTSIDE RECORDS SUMMARY | 2025-05-21 10:35 | XMS_ITS | Data Portability ---
Author Organization Formerly [facility] Address [address] [place] [address] Care Team Providers Care Licensed Massage Therapist Name Role Phone JOSETTETERRY Cameron Primary Care Provider Assessment Encounter Date Assessment Date Assessment LastModified by Organization Details LastModified Time 11/02/2017 11/02/2017 CAD Stented quiescent Asthma Seasonal allergies Erosive oa Degenerative cervical spinal stenosis surgery 2006 Refill Ahwahnee 7.5 mg /325 mg 1/2-1 po pm prn #30 No signs or symptoms of adverse effects noted .Darrick reviewed and appropriate. Chronic back pain Depo Medrol 120 mg IM [email or web address] Not available 11/02/2017 10:49:29 01/25/2018 01/25/2018 Fall Residual bruising lumbar region (R) hip radiates anterior severe erosive changes elsewhere Stable cv stent x 1 quiescent asthma Rx Ahwahnee 7.5 mg 1/2- 1 tablet po TID #45 Depo Medrol 120 mg IM Xray right hip ,L-spine and pelvis today. Patient refused xray's today states to painful ngallenstein Not available 01/25/2018 11:52:26 02/28/2018 02/28/2018 CAD Stented LDL sub optimal good repatha candidate no ischemic pain well controlled asthma Chronic pain extensive erosive oa recent fall from high ladder pain precludes sleep and normal activity Refill Ahwahnee 7.5 mg 1/2 -1 tablet po TID #45 [email or web address] Not available 03/04/2018 15:59:18 Plan of Treatment Reminders Order Date Submit Date Provider Last Modified By Organization Details Last Modified Time Details Appointments None yamila argueta Lab crystal s, body fluid 2017 018 [place] [facility], [address], [place] [address], [place], [address], 8 14:37:19 Referral None recorde d. Procedures injecti on/aspi ration large joint/b ursa (PROC) 2017 018 [email or web address] Not available 8 08:30:20 Surgeries None recorde d. Imaging XR, hand, 3 or more view 2017 018 sneus Not available 8 19:25:03 XR, forearm , 2 view 2017 018 sneus Not available 8 19:25:03 XR, chest, 2 view 2017 018 sneus Not available 8 19:25:03 Medication Orders hydroco done 7.5 mg-acet aminoph en 325 mg tablet 2017 018 [email or web address] Not available 8 14:00:13 Flonase Allergy Relief 50 mcg/act uation nasal spray,s uspensi on 2017 018 sneus Not available 8 13:49:24 esomepr azole magnesi um 40 mg capsule ,delaye d release 2017 018 [id number], [address] [place], [id number], 8 13:49:24 celecox ib 200 mg capsule 2017 018 [id number], [address] [place], [id number], 8 13:49:24 amlodip ine 10 mg tablet 2017 018 [id number], [address] [place], [id number], 8 13:49:24 Depo-Me drol 80 mg/mL suspens ion for injecti on 2017 018 [email or web address] Not available 8 10:31:07 Depo-Me drol 40 mg/mL suspens ion for injecti on 2017 018 [email or web address] Not available 8 10:31:04 esomepr azole magnesi um 40 mg capsule ,delaye d release 2017 018 [facility] #[id number], [address] [place], [id number], 8 18:50:59 celecox ib 200 mg capsule 2017 018 [id number], [address] [place], [id number], 8 18:50:59 hydroco done 7.5 mg-acet aminoph en 325 mg tablet 2017 018 [email or web address] Not available 8 10:49:14 Zithrom ax Z-Fer 250 mg tablet 2017 018 Not available 8 12:51:45 Depo-Me drol 80 mg/mL suspens ion for injecti on 2017 018 [email or web address] Not available 8 10:31:07 ketorol ac 60 mg/2 mL intramu scular solutio n 2017 018 [email or web address] Not available 8 10:41:48 hydroco done 7.5 mg-acet aminoph en 325 mg tablet 2017 018 [email or web address] Not available 8 17:09:09 Depo-Me drol 80 mg/mL suspens ion for injecti on 2017 018 [email or web address] Not available 8 10:31:07 Depo-Me drol 40 mg/mL suspens ion for injecti on 2017 018 [email or web address] Not available 8 10:31:04 hydroco done 7.5 mg-acet aminoph en 325 mg tablet 2017 018 Not available 8 09:25:58 Patient TargetsNo targets recorded. Patient Instructions Encounter Date Encounter Id Patient Instructions Last Modified By Organization Details Last Modified Time 11/02/2017 [id number] learning about healthy weight sneus Not available 11/02/2017 13:49:09 12/03/2017 [id number] costochondritis: care instructions sneus Not available 12/03/2017 19:25:03 01/11/2018 [id number] keep compression on elbow, gentle ROM exercises, RTC prn [email or web address] Not available 01/11/2018 12:03:02 01/25/2018 [id number] hip pain: care instructions sneus Not available 01/25/2018 18:50:59 nelson's esophagus: care instructions sneus Not available 01/25/2018 18:50:59 02/28/2018 [id number] back care and preventing injuries: care instructions sneus Not available 03/07/2018 08:12:51 getting back to normal after low back pain: care instructions sneus Not available 03/07/2018 08:12:51 learning about relief for back pain sneus Not available 03/07/2018 08:12:51 seasonal allergies: care instructions sneus Not available 03/07/2018 08:12:51 frequent urination: care instructions sneus Not available 03/07/2018 08:12:51 A healthy lifestyle: care instructions sneus Not available 03/07/2018 08:12:51 high blood pressure: care instructions sneus Not available 03/07/2018 08:12:51 learning about high blood pressure sneus Not available 03/07/2018 08:12:51 Reason for Referral None Reported. Results Created Date Observation Date Name Description Value Unit Range Abnormal Flag Note LastModifiedBy Organization Detail LastModifiedTime 01/12/20 18 01/12/2018 cryst als, body fluid crystal,syno vial/joint fL Commen t none seen No cryst als seen under desi l or polar ized light . Not Available [facility] ([facility]) [address], [place], [address], 01/12/2018 14:37:19 12/04/19 18 12/03/2017 XR, chest , 2 view No observ ation record ed. sneus Not Available 2017 08:16:22 12/04/19 18 12/03/2017 XR, forea rm, 2 view No observ ation record ed. sneus Not Available 2017 08:17:32 12/04/19 18 12/03/2017 XR, hand, 3 or more view No observ ation record ed. [email or web address] Not Available 2017 08:14:24 Result Notes None recorded. Problems Name Problem SNOMED Code Status Onset Date Resolution Date Notes Provider Name and Address Organization Details Recorded Time Arthropathy 220315794 Active 2015 Christa pederson, [place] - [facility] 6 11:03:24 Coronary arterioscleros is 82021717 Active 2015 Christa pederson [place] - [facility] 6 11:03:44 Neck pain 14950405 Active 2015 Christa pederson, [place] - [facility] 6 11:03:54 Chronic back pain 696296327 Active 2015 Christa Weaver null, [place] - [facility] 6 11:04:07 Nelson's esophagus 194551841 Active 2015 Christa Weaver null [place] F - [facility] 6 11:04:34 Essential hypertension 20275304 Active 2015 Christa pederson, [place] - [facility] 6 11:05:05 Degenerative cervical spinal stenosis 802710705 Active 2015 Terry Perez null, [place] - [facility] 6 11:39:37 Benign prostatic hyperplasia 045393822 Active 2015 Terry Perez null, [place] - [facility] 6 11:51:21 Seasonal allergy 781542000 Active 2017 Radha Levine null, [place] - [facility] 8 12:55:43 Problem Notes None recorded. Procedures Surgical History Date Name Laterality Status Provider Name and Address Organization Details Recorded Time 1 Colonoscopy completed Christa KERNS - [facility] 05/21 11:08:09 Carpal tunnel surgery completed Christa KERNS [facility] 05/21/2016 11:08:30 Arthrd pst tq atlas-axis completed Christa KERNS - [facility] 05/21/2016 11:09:12 Neck spine disk surgery completed Christa KERNS - [facility] 05/21/2016 11:09:49 Hernia Repair completed Christa Cueto [facility] 05/21/2016 11:10:00 Imaging Results None recorded. Procedure Notes None recorded. Medical Equipment None Reported. Allergies Allergen ID Allergen Name Allergen Category Reaction Reaction Severity Criticality Documentation Date Start Date Code Code System Note Provider Name and Address Organization Details Recorded Time 75220 Product containin g penicilli n (product) medicatio n anaphylax is Not available Not available 05/01/20162007 11608 8001 SNOMED React ion: Anaph ylaxi s; Comme nt: Penic illin ; Not Available [facility] 6 09:16:06 64350 codeine medicatio n rash Not available Not available 05/01/20162007 2670 RxNorm React ion: Putit is; Comme nt: codei ne; Christa pederson LU[place] F [facility] 6 11:02:43 Medications Name Sig Start Date Stop Date Status Note LastModified by Organization Details LastModified Time Prescript ion - Renewal 01/11 completed RX Not Available Not Available Not Available losartan 50 mg tablet take 1 tablet (50 mg) by oral route once daily for 30 days 08/14 completed losartan 50 mg oral tablet;R ecorded Status: Recorded on: 03/10/20 10 9:10AM;D iscontin ued Status: Disconti nued on: 08/14/19 15 10:01AM; User: Sonny Tsai on: 04/06/20 10 Not Available Not Available Not Available celecoxib 200 mg capsule TAKE ONE CAPSULE BY MOUTH EVERY DAY NEEDED active Not Available Not Available No t Available cyclobenz aprine 10 mg tablet Take 1 tablet 3 times a day by oral route. active Not Available Not Available No t Available methocarb apurva 500 mg tablet Take 2 tablets 3 times a day by oral route. 02/08 completed Not Available Not Available Not Available prednison e 10 mg tablet take 2 tablets by oral route QD x 7 and then 1 qd x 7 and then 1 qod x 7 07/24 completed predniso ne 10 mg oral tablet;R ecorded Status: Recorded on: 05/03/20 15 7:39PM;D iscontin ued Status: Disconti nued on: 07/24/20 15 11:53AM; User: Sonny tClaude Completi on: 05/24/20 15 Not Available Not Available Not Available Biaxin 250 mg tablet take 1 tablet (250 mg) by oral route every 12 hours for 10 days 01/03 completed Biaxin 250 mg oral tablet;R ecorded Status: Recorded on: 07/24/20 09 10:40AM; Disconti nued Status: Disconti nued on: 01/04/20 10 10:12AM; User: alex downing;Est. Completi on: 08/03/19 10;Indic ation: Streptoc occal Tonsilli tis - () Not Available Not Available Not Available Diovan HCT 80 mg-12.5 mg tablet take 1 tablet by oral route once daily 09/16 completed Diovan HCT 80-12.5 mg oral tablet;R ecorded Status: Recorded on: 03/20/20 09 6:39PM;D iscontin ued Status: Disconti nued on: 09/16/19 11 5:16PM;U ser: sondra; Est. Completi on: 09/16/19 10;Indic ation: Hyperten arabella - () Not Available Not Available Not Available Depo-Medr ol 40 mg/mL suspensio n for injection Take 40 mg by injectio n route. 02/04 completed Not Available Not Available Not Available pentazoci ne-acetam inophen 25 mg-650 mg tablet 1/2-1--q 12-24 hours prn 06/08 completed pentazoc ine-acet aminophe n 25-650 mg oral tablet;R ecorded Status: Recorded on: 05/12/20 13 9:51AM;D iscontin ued Status: Disconti nued on: 06/08/20 14 9:57AM;U ser: neuss;Es t. Completi on: 09/09/19 14 Not Available Not Available Not Available azithromy elmer 250 mg tablet Take 2 tablets the first day (500 mg) followed by 1 tablet (250 mg) days 2-5. for 5 days 02/23 completed Not Available Not Available Not Available citalopra m 10 mg tablet take 1 tablet (10 mg) by oral route once daily for 30 days 05/21 completed Not Available Not Available Not Available Celestone Soluspan 6 mg/mL suspensio n for injection Take 1 mL by injectio n route. 10/27 completed Not Available Not Available Not Available Darvocet- N 100 100 mg-650 mg tablet 1 po q 6 hours prn 09/16 completed Darvocet -N 100 100-650 mg oral tablet;c omment: recall;R ecorded Status: Recorded on: 03/10/20 10 9:10AM;D iscontin ued Status: Disconti nued on: 09/16/19 11 5:16PM;U ser: neuss;Es t. Completi on: 09/03/19 11 Not Available Not Available Not Available Medrol (Fer) 4 mg tablets in a dose pack take as directed for 6 days 10/27 completed Not Available Not Available Not Available Biaxin 500 mg tablet take 1 tablet (500 mg) by oral route 2 times per day for 10 days 03/07 completed Biaxin 500 mg oral tablet;R ecorded Status: Recorded on: 07/09/20 09 9:36AM;D iscontin ued Status: Disconti nued on: 03/07/20 10 8:18AM;U ser: neuss;Es t. Completi on: 07/19/20 09 Not Available Not Available Not Available ciproflox acin 500 mg tablet take 1 tablet (500 mg) by oral route 2 times per day for 10 days 11/23 completed Not Available Not Available Not Available hydrocodo ne 10 mg-acetam inophen 325 mg tablet take 0.5 tablet by oral route 3 times a day as needed 02/25 completed hydrocod one-acet aminophe n 10-325 mg oral tablet;R ecorded Status: Recorded on: 02/17/20 16 5:46PM;U ser: josettess;Es t. Completi on: 02/26/20 16 Not Available Not Available Not Available omeprazol e 40 mg capsule,d elayed release take 1 capsule by oral route daily 12/02 completed omeprazo le 40 mg oral capsule, delayed release( /ANGEL);P rescribe Status: Prescrib ed on: 11/22/19 13 12:00AM; Disconti nued Status: Disconti nued on: 12/03/19 13 10:02AM; User: chris;Es t. Completi on: 11/17/19 14;Indic ation: Gastroes ophageal Reflux - (09.5308 10);Phar Sola fied: 11/22/19 13 12:18PM Not Available Not Available Not Available Zantac 75 mg tablet po bid prn 02/15 completed Zantac 75 75 mg oral tablet;R ecorded Status: Recorded on: 04/28/20 08 10:04PM; Disconti nued Status: Disconti nued on: 02/16/20 12 10:37AM; User: sondra Not Available Not Available Not Available tramadol 50 mg tablet take 1 tablet (50 mg) by oral route every 6 hours as needed for 30 days 01/11 completed Not Available Not Available Not Available Depo-Medr ol 80 mg/mL suspensio n for injection Take 80 mg by injectio n route. 02/04 completed Not Available Not Available Not Available oxycodone -acetamin ophen 5 mg-325 mg tablet take 2 tablets by oral route every 4 hours as needed for 10 days 12/03 completed oxycodon e-acetam inophen 5-325 mg oral tablet;R ecorded Status: Recorded on: 08/14/19 15 10:01AM; Disconti nued Status: Disconti nued on: 12/04/19 15 8:53AM;U ser: bishopk; Est. Completi on: 01/21/20 14;Indic ation: Pain - (62.4927 95) Not Available Not Available Not Available Tessalon Perles 100 mg capsule take 1 capsule (100 mg) by oral route 3 times per day prn 12/03 completed Tessalon Perles 100 mg oral capsule; Prescrib e Status: Prescrib ed on: 10/17/19 15 10:53AM; Disconti nued Status: Disconti nued on: 12/04/19 15 8:53AM;U ser: gored;Es t. Completi on: 10/27/19 15;Indic ation: Cough - (68.0738 08);Phar macyVeri fied: 10/17/19 15 10:53AM Not Available Not Available Not Available amlodipin e 10 mg tablet TAKE 1 TABLET BY MOUTH EVERY DAY active Not Available Not Available No t Available hydrocodo ne 7.5 mg-acetam inophen 325 mg tablet 0.5-1 tablet tid prn 2017 active Not Available Not Available Not Avai lable cephalexi n 500 mg capsule 01/11 completed Not Available Not Available Not Available oseltamiv ir 75 mg capsule Take 1 capsule twice a day by oral route for 5 days. 10/27 completed Not Available Not Available Not Available Prozac 20 mg capsule take 1 capsule (20 mg) by oral route once daily in the morning 05/21 completed Prozac 20 mg oral capsule; Recorded Status: Recorded on: 10/19/19 16 7:10AM;U ser: neuss;Es t. Completi on: 04/16/20 16;Indic ation: Major Depressi ve Disorder - (28.1428 29) Not Available Not Available Not Available esomepraz ole magnesium 40 mg capsule,d elayed release TAKE ONE CAPSULE BY MOUTH EVERY DAY active Not Available Not Available No t Available triamcino lone acetonide 0.1 % topical ointment active Not Available Not Available Not Available Lincocin 300 mg/mL injection solution Take 1 mL by injectio n route. 10/27 completed Not Available Not Available Not Available Robaxin-7 50 750 mg tablet take 1 tablet (750 mg) by oral route every 4 hours 01/20 completed Robaxin- 750 750 mg oral tablet;R ecorded Status: Recorded on: 03/07/20 10 8:20AM;D iscontin ued Status: Disconti nued on: 01/21/20 11 9:13AM;U ser: bishopk; Indicati on: Muscle Spasm - (13.7288 50) Not Available Not Available Not Available Pravachol 20 mg tablet take 1 tablet (20 mg) by oral route once daily for 30 days 01/26 completed Pravacho l 20 mg oral tablet;R ecorded Status: Recorded on: 07/31/19 16 11:24AM; User: neuss;Catrachita t. Completi on: 01/27/20 16;Indic ation: Slow Progress ion of Coronary Artery Disease - (07.4140 03) Not Available Not Available Not Available Imdur 60 mg tablet,ex tended release take 0.5 tablet by oral route daily 08/14 completed Imdur 60 mg oral tablet extended release 24 hr;Recor ded Status: Recorded on: 10/16/19 12 9:48AM;D iscontin ued Status: Disconti nued on: 08/14/19 15 10:01AM; User: josettess;Catrachita t. Completi on: 10/29/19 12;Indic ation: Chronic Angina Pectoris - (07.4139 03) Not Available Not Available Not Available nitroglyc kina 0.4 mg sublingua l tablet Place 1 tablet by sublingu al route. active Not Available Not Available No t Available omeprazol e 20 mg capsule,d elayed release take 1 capsule by oral route daily 12/06 completed omeprazo le 20 mg oral capsule, delayed release( /EC);R ecorded Status: Recorded on: 12/03/19 13 10:02AM; Disconti nued Status: Disconti nued on: 12/07/19 14 3:49PM;U ser: neuss;Es t. Completi on: 03/02/20 13;Indic ation: Gastroes ophageal Reflux - (5308 ) Not Available Not Available Not Available Baby Aspirin 81 mg chewable tablet Chew 1 tablet every day by oral route for 3110924 days. 2015 active Not Available Not Available Not Avai lable Levaquin 500 mg tablet take 1 tablet (500 mg) by oral route once daily for 7 days 10/18 completed Levaquin 500 mg oral tablet;P rescribe Status: Prescrib ed on: 08/20/19 16 10:46AM; Disconti nued Status: Disconti nued on: 10/19/19 16 7:10AM;U ser: gored;Es t. Completi on: 08/27/19 16;Pharm acyVerif ied: 08/20/19 16 10:46AM Not Available Not Available Not Available lorazepam 1 mg tablet take 0.5-1 tablet by oral route every 24 hours as needed 08/20 completed lorazepa m 1 mg oral tablet;R ecorded Status: Recorded on: 12/04/19 15 9:36AM;D iscontin ued Status: Disconti nued on: 08/20/19 16 9:58AM;U ser: neuss;Es t. Completi on: 04/02/20 15 Not Available Not Available Not Available Aspir-81 mg tablet,de layed release take 1 tablet (81 mg) by oral route once daily 03/17 completed Aspir-81 81 mg oral tablet,d elayed release (/EC); Recorded Status: Recorded on: 02/16/20 12 10:37AM; User: chris;Es t. Completi on: 03/17/20 12;Indic ation: Myocardi al Reinfarc tion Preventi on - (4109 ) Not Available Not Available Not Available Viagra 100 mg tablet take 1 tablet (100 mg) by oral route once daily as needed approxim ately 1 hour before sexual activity 12/20 completed Viagra 100 mg oral tablet;R ecorded Status: Recorded on: 09/12/19 11 4:57PM;D iscontin ued Status: Disconti nued on: 12/21/19 15 1:43PM;U ser: bishopk; Est. Completi on: 08/08/19 12 Not Available Not Available Not Available Tylenol-C odeine #3 300 mg-30 mg tablet take 1 tablet by oral route 3 times a day as needed 06/08 completed Tylenol- Codeine #3 300-30 mg oral tablet;R ecorded Status: Recorded on: 12/07/19 14 4:41PM;D iscontin ued Status: Disconti nued on: 06/08/20 14 9:57AM;U ser: neuss;Es t. Completi on: 04/05/20 14;Indic ation: Pain in joint, multiple sites - (719.49) Not Available Not Available Not Available albuterol sulfate HFA 90 mcg/actua tion aerosol inhaler TAKE 2 PUFFS BY MOUTH EVERY 4 HOURS NEEDED active Not Available Not Available No t Available ketorolac 60 mg/2 mL intramusc ular solution now 01/11 completed Not Available Not Available Not Available losartan 100 mg tablet TAKE 1 TABLET BY MOUTH EVERY DAY active Not Available Not Available No t Available diazepam 5 mg tablet 11/23 completed Not Available Not Available Not Available amoxicill in 500 mg-potass ium clavulana te 125 mg tablet Take 1 tablet 3 times a day by oral route for 10 days. 11/02 completed Not Available Not Available Not Available Zetia 10 mg tablet take 1 tablet (10 mg) by oral route once daily 07/31 completed Zetia 10 mg oral tablet;P rescribe Status: Prescrib ed on: 08/03/19 15 8:54AM;D iscontin ued Status: Disconti nued on: 07/31/19 16 9:27AM;U ser: neuss;Es t. Completi on: 07/29/19 16;Pharm acyVerif ied: 08/03/19 15 8:54AM Not Available Not Available Not Available Proventil 90 mcg/actua tion aerosol inhaler two puff q 6hrs prn 01/03 completed Proventi l 90 mcg/actu ation inhalati on aerosol; Recorded Status: Recorded on: 04/28/20 08 10:03PM; Disconti nued Status: Disconti nued on: 01/04/20 10 10:12AM; User: k Not Available Not Available Not Available Crestor 5 mg tablet take 1 tablet by oral route daily for 30 days 12/02 completed Crestor 5 mg oral tablet;R ecorded Status: Recorded on: 10/16/19 12 9:48AM;D iscontin ued Status: Disconti nued on: 12/03/19 13 10:02AM; User: Sonny decker Completi on: 10/29/19 12;Indic ation: Mixed Hyperlip idemia - () Not Available Not Available Not Available ketorolac 60 mg/2 mL intramusc ular syringe 60mg now 04/12 completed Not Available Not Available Not Available Symbicort 160 mcg-4.5 mcg/actua tion HFA aerosol inhaler inhale 2 puffs by inhalati on route 2 times per day in the morning and evening 12/02 completed Symbicor t 160-4.5 mcg/actu ation inhalati on HFA aerosol inhaler; Recorded Status: Recorded on: 10/29/19 11 9:23AM;D iscontin ued Status: Disconti nued on: 12/03/19 13 10:02AM; User: Laura Aviles on: 10/23/19 12;Print ed: 10/29/19 11 Not Available Not Available Not Available Effient 10 mg tablet take 1 tablet (10 mg) by oral route once daily 08/14 completed Effient 10 mg oral tablet;R ecorded Status: Recorded on: 02/16/20 12 10:37AM; Disconti nued Status: Disconti nued on: 08/14/19 15 10:02AM; User: Sonny decker Completi on: 03/17/20 12;Indic ation: Myocardi al Reinfarc tion Preventi on - () Not Available Not Available Not Available guaifenes in ER 600 mg tablet, extended release 12 hr one po bid 10/18 completed guaifene sin 600 mg oral tablet extended release 12hr;Pre scribe Status: Prescrib ed on: 08/20/19 16 10:46AM; Disconti nued Status: Disconti nued on: 10/19/19 16 7:10AM;U ser: gored;Catrachita decker Renardi on: 08/27/19 16;Pharm acyVerif ied: 08/20/19 16 10:46AM Not Available Not Available Not Available Flonase Allergy Relief 50 mcg/actua tion nasal spray,ed pension [place] 1 spray every day by intranas al route. 2017 active Not Available Not Available Not Avai lable Breo Ellipta 200 mcg-25 mcg/dose powder for inhalatio n inhale 1 puff by inhalati on route once daily at the same time each day for 30 days 05/21 completed Breo Ellipta 200-25 mcg/dose inhalati on blister with device;R ecorded Status: Recorded on: 02/26/20 16 11:15AM; User: [email or web address];Catrachita decker Completi on: 08/24/19 17;Indic ation: Maintena nce Therapy for Asthma - (08.4939 10) Not Available Not Available Not Available Vitals Date Recorded Body height Body mass index (BMI) Body weight Heart rate Respiratory rate Systolic And Diastolic Provider Name and Address Organization Details Last Updated DateTime 8 172.72 cm 26.8 kg/m2 38645.2 6 g 80 /min 18 /min 118/82 mm[Hg] Radha Levine [facility] 8 08:36:00 Date Recorded Body height Body mass index (BMI) Body weight Heart rate Respiratory rate Systolic And Diastolic Provider Name and Address Organization Details Last Updated DateTime 8 172.72 cm 26.8 kg/m2 96561.2 6 g 80 /min 18 /min 128/74 mm[Hg] Radha Levine [facility] 8 15:31:12 Date Recorded Body height Body mass index (BMI) Body weight Heart rate Oxygen saturation Oxygen saturation in Arterial blood by Pulse oximetry Respiratory rate Systolic And Diastolic Provider Name and Address Organization Details Last Updated DateTime 8 172.72 cm 26.9 kg/m2 11078.8 5 g 62 /min 99 % 99 % 20 /min 128/76 mm[Hg] Vannesa Young [place] - [facility] 8 10:41:34 Date Recorded Body height Body mass index (BMI) Body weight Heart rate Respiratory rate Systolic And Diastolic Provider Name and Address Organization Details Last Updated DateTime 8 172.72 cm 26 kg/m2 03901.3 g 72 /min 18 /min 118/70 mm[Hg] Radha Levine [facility] 8 09:24:24 Date Recorded Pain severity [facility] pain rating scale Provider Name and Address Organization Details Last Updated DateTime 01/25/2018 7 Not Available [facility] 8 07:52:26 Date Recorded Body height Body mass index (BMI) Body weight Heart rate Respiratory rate Systolic And Diastolic Provider Name and Address Organization Details Last Updated DateTime 8 172.72 cm 26 kg/m2 94389.3 g 96 /min 18 /min 110/80 mm[Hg] Radha Levine [facility] 8 13:20:59 Social History Question Answer Notes LastModified by [employer] Details LastModified Time Tobacco Smoking Status Former Smoker Christa pederson [facility] 05/21/2016 11:07:30 Do You Have An Advance Directive? Yes [email or web address] Information not available 04/12/2017 Hard Of Hearing Or Deaf In One Or Both Ears? No [email or web address] Information not available 05/22/2016 Legally Blind In One Or Both Eyes? No [email or web address] Information not available 05/22/2016 Live Alone Or With Others? With Others [email or web address] Information not available 04/12/2017 What Was The Date Of Your Most Recent Tobacco Screening? 02/28/2018 Information n ot available 02/15/2019 Seat Belts Used Routinely Yes [email or web address] Information not available 05/22/2016 How Much Tobacco Do You Smoke? 1 PPD [email or web address] Information not available 05/21/2016 General Stress Level Medium [email or web address] Information not available 05/22/2016 How Many Years Have You Smoked Tobacco? 42 [email or web address] Information not available 05/21/2016 Sex: Unknown Functional Status Question Answer Note LastModified by [employer] Details LastModified Time Are you currently employed? Yes [email or web address] Information not available 05/22/2016 Are you able to care for yourself independently? 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 Occasional [email or web address] Information not available 05/22/2016 Mental Status None recorded. Family History Relationship Description Onset Age of this Age Resolved Age Notes LastModified by Organization Details LastModified Time Father Cardiomegaly [email or web address] Not av ailable 05/21/2016 11:05:37 Father Coronary arterioscler osis [email or web address] Not available 04/26 11:06:02 Father Myocardial infarction [email or web address] Not available 11:06:41 Maternal Grandfather Cataract [email or web address] Not available 1 11:05:49 Brother Pulmonary emphysema [email or web address] Not available 04/26 11:06:14 Mother Malignant neoplasm of lung [email or web address] Not available 04/26 11:06:28 Maternal Grandmother Osteoarthrit is [email or web address] Not available 04/26 11:06:57 Medical History No medical history recorded. Immunizations Vaccine Type Date Status Note Provider Nam e and Address Organization Details Recorded Time Influenza, split virus, quadrivalent, preservative 6 completed Not Available [facility] 08/12/2019 03:54:18 Influenza, split virus, quadrivalent, preservative 7 completed Not Available [facility] 08/12/2019 03:54:43 influenza, unspecified formulation 1 completed Not Available [facility] 08/26/2019 02:21:38 influenza, unspecified formulation 2 completed Not Available [facility] 08/26/2019 02:21:38 influenza, unspecified formulation 3 completed Not Available [facility] 08/26/2019 02:21:38 influenza, unspecified formulation 4 completed Not Available [facility] 08/26/2019 02:21:38 influenza, unspecified formulation 5 completed Not Available [facility] 08/26/2019 02:21:38 Past Encounters Encounter ID Performer Location Encounter Start Date Encounter Closed Date Diagnosis/Indication Diagnosis SNOMED-CT Code Diagnosis ICD10 Code Diagnosis IMO Codes Diagnosis Note [id number] [facility] [address] [place] [address] 12/23/2007 00:00:00 [id number] [facility] [address] [place] [address] [address] 11/30/2008 00:00:00 [id number] [facility] [address] [place] [address] 07/09/2009 00:00:00 [id number] [facility] [address] [place] [address] [address] 07/24/2009 00:00:00 [id number] [facility] [address] [place] [address] [address] 03/07/2010 00:00:00 [id number] [facility] [address] [place] [address] [address] 09/16/2010 00:00:00 [id number] [facility] [address] [place] [address] [address] 09/24/2010 00:00:00 [id number] [facility] [address] [place] [address] [address] 01/20/2011 00:00:00 [id number] [facility] [address] [place] [address] [address] 03/02/2011 00:00:00 [id number] [facility] [address] [place] [address] [address] 05/01/2011 00:00:00 [id number] [facility] [address] [place] [address] [address] 02/16/2012 00:00:00 [id number] [facility] [address] [place] [place] [address] [address] 08/12/2012 00:00:00 [id number] [facility] [address] [place] [address] 12/02/2012 00:00:00 [id number] [facility] [address] [place] [address] 02/06/2013 00:00:00 [id number] [facility] [address] [place] [address] 09/26/2012 00:00:00 [id number] [facility] [address] [place] [address] 12/02/2012 00:00:00 [id number] [facility] [address] [place] [address] 12/06/2013 00:00:00 [id number] [facility] [address] [place] [address] 03/27/2014 00:00:00 [id number] [facility] [address] [place] [address] 06/08/2014 00:00:00 [id number] [facility] [address] [place] [address] 05/12/2013 00:00:00 [id number] [facility] [address] [place] [address] 07/30/2014 00:00:00 [id number] [facility] [address] [place] [address] 06/26/2013 00:00:00 [id number] [facility] [address] [place] [address] 08/14/2014 00:00:00 [id number] [facility] [address] [place] [address] 08/16/2013 00:00:00 [id number] [facility] [address] [place] [address] 10/02/2014 00:00:00 [id number] [facility] [address] [place] [address] 12/06/2013 00:00:00 [id number] [facility] [address] [place] [place] [address] 10/16/2014 00:00:00 [id number] [facility] [address] [place] [address] 12/03/2014 00:00:00 [id number] [facility] [address] [place] [address] 12/20/2014 00:00:00 [id number] [facility] [address] [place] [address] 05/03/2015 00:00:00 [id number] [facility] [address] [place] [address] 08/20/2015 00:00:00 [id number] [facility] [address] [place] [address] 07/31/2015 00:00:00 [id number] [facility] [address] [place] [address] 10/01/2015 00:00:00 [id number] [facility] [address] [place] [address] 08/20/2015 00:00:00 [id number] [facility] [address] [place] [address] 10/29/2015 00:00:00 [id number] [facility] [address] [place] [address] 11/27/2015 00:00:00 [id number] [facility] [address] [place] [address] 02/24/2016 00:00:00 [id number] [facility] [address] [place] [address] 02/26/2016 00:00:00 [id number] Terry Perez MD [address] [place] [address] 05/22/2016 10:08:53 05/22/2016 12:07:37 General examination of patient [id number] Z00.00 Hyperlipid emia screening 736647513 Z13.220 Administra tion of influenza vaccine 66771236 Z23 Degenerati ve cervical spinal stenosis 858543859 M48.02 surgery 2007Dr Miracle Coronary arteriosclerosis 11069366 I25.10 Benign pro static hyperplasia 689230488 N40.0 Essential hypertension 78785170 I10 Nelson's esophagus 3029 00875 K22.70 [id number] Elizabeth Quintero [address] [place] [address] 05/28/2016 09:43:46 05/28/2016 10:21:55 Upper respiratory infection 41900348 J06.9 [id number] Elizabeth Quintero [address] [place] [address] 10/19/2016 09:46:02 10/19/2016 11:59:57 Upper respiratory infection 00752918 J06.9 [id number] Terry Perez MD [address] [address] 11/23/2016 07:43:59 11/23/2016 09:06:38 Chronic back pain 775966656 M54.9 Arthritis 1869840 M19.90 Pain of joint 56683142 M 25.50 Renewal of prescription 302380994 Z76.0 [id number] Elizabeth Quintero [address] [address] 01/18/2017 11:00:20 01/18/2017 13:13:28 Chronic back pain 078846274 M54.16 [id number] Elizabeth Quintero [address] [address] 04/12/2017 09:46:58 04/12/2017 11:06:57 Body mass index 25-29 - overweight 355581863 Z68.25 Upper resp iratory infection 17621277 J06.9 [id number] Terry Perez MD [address] [place] [address] 05/21/2017 07:56:44 05/21/2017 10:29:04 Essential hypertension 06917028 I10 General ex amination of patient 873054926 Z00.00 Administra tion of influenza vaccine 12275460 Z23 Viral screening 91492089 4 Z11.59 Chronic back pain 492535 002 M54.9 Hyperlipid emia screening 639208796 Z13.220 Screening for malignant neoplasm of prostate 964454309 Z12.5 [id number] Elizabeth Quintero APRN [place] [address] [address] 10/14/2017 08:40:45 10/14/2017 09:10:28 Upper respiratory infection 13864536 J06.9 [id number] Terry Perez MD [address] [address] 11/02/2017 08:13:27 11/02/2017 09:26:27 Administration of viral vaccine 23165882 Z23 Chronic back pain 012591 002 M54.9 Degenerati ve cervical spinal stenosis 028316043 M48.02 [address] Miracle Body mass index 25-29 - overweight 297572669 Z68.26 [id number] Terry Perez MD [place] [address] [address] 12/03/2017 14:52:48 12/03/2017 16:37:23 Costal chondritis 02004399 M94.0 Pain of right forearm 31 17989425 42170 M79.631 Pain of right hand 90254 21372 05418 M79.641 Degenerati ve cervical spinal stenosis 023072059 M48.02 surgery 2007Dr Miracle [id number] Elizabeth Quintero DISTRIBUTING CLERK [place] [address] [place] [address] 01/11/2018 10:26:33 01/11/2018 11:48:42 Lower respiratory tract infection 03639097 J22 Pain of elbow region 743 40482 M25.522 Effusion of joint 700827 008 M25.40 left elbow joint effusion aspirated with a return of 13 cc of serosangui nous fluid Chronic ob structive pulmonary disease 56353557 J44.9 [id number] Terry Perez MD [facility] [address] [address] 01/25/2018 08:37:02 01/25/2018 11:50:11 Degenerative cervical spinal stenosis 228991286 M48.02 Chronic back pain 103704 002 M54.9 Pain of mu ltiple joints 06767130 M25.50 Nelson's esophagus 3029 37599 K22.70 Pain of hip region 97998 002 M25.888 [id number] Terry Perez MD [facility] [address] [place] [address] 02/28/2018 12:19:53 02/28/2018 14:16:50 Degenerative cervical spinal stenosis 251889920 M48.02 Chronic back pain 997596 002 M54.9 Essential hypertension 59559806 I10 Pain of mu ltiple joints 22203643 M25.50 Nelson's esophagus 3029 15909 K22.70 Seasonal allergy 9687294 04 J30.2 Low back pain 027982847 M54.5 Increased frequency of urination 411546454 R35.0 nocturnal Body mass index 25-29 - overweight 341094964 Z68.26 Health Concerns Section Related Observation LastModified by Organization Detai ls LastModified Time None Recorded Concern Status LastModified by Organization Details LastModified Time None Recorded Advance Directives Directive Y: Payers Insurance Date Sequence Insurance Name Policy Number Policy Benavidez Covered Member ID Benavidez Member ID Guarantor Name 03/21/2018 1 [place] [id number] Nguyen Olivas [id number] Rupert Olivas Notes Date Note Type Note Provider Name and Address Organization Details Recorded Time 8 text/html Musculoskeletal PainReported by PatientHPIFor duration, patient reportspresent for >12 months. For context, patient reportsprior back problemsandused medication for back pain. For alleviating factors, patient reportsrestandrelieved by changing position. For aggravating factors, patient reportsbending overandtwisting. For associated symptoms, patient reportsno feverandno incontinence(radiculopathy r sided). For adl (activities of daily living), patient reportsimprove with medication. For location, (chronic joint and back pain). For quality, (varies). For severity, (sciatica worsening). For timing, (chronic with intermittent worsening). Sinusitis/AllergyReported by PatientHPIFor associated symptoms, patient reportsdifficulty breathing,headache cheek,facial pain bilaterally,sinus pain diffuse,nasal passage blockage bilaterally,ear fullness, andpain behind the eyes both. For quality, patient reportsworsening,hoarseness , andaching. For severity, patient reportslimits daily activities,interference with work, andfrequent breathing through the mouth. For context, patient reportsworse with seasonal allergen exposureandworse with environmental exposure. For location, patient reportsmaxillaryandfrontal. For onset/timing, patient reportsnew onset. For duration, patient reportsinfrequent(seasonal) . For alleviating factors, (usually injection needed of steroids). Angelique pederson [place] - [facility] 11/02/2017 10:55:25 8 text/html Musculoskeletal PainReported by PatientHPIFor severity, patient reportsworsening. For associated symptoms, patient reportsnumbness of the legs/feet(in the r hand that has the edema and sutures to the r elbow). For duration, patient reportspresent for >12 months. For alleviating factors, patient reportsrest. For aggravating factors, patient reportsmovement/positioning ,bending over, andtwisting. For location, (chronic joint and back pain that has worsened since fall). For quality, (varies but since fall severe). For timing, (chronic with intermittent worsening and since fall severeworsening). For context, (prior joint and back pain that has worsened since fall). LUIS F [place] - [facility] 12/29/2017 11:24:59 8 text/html Musculoskeletal PainReported by PatientHPIFor quality, patient reportsdull. For severity, patient reportsworsening. For location, patient reportsright elbow. For duration, patient reportspresent for 1-6 months. For timing, patient reportsconstant. For associated symptoms, patient reportsno feverandno weak limbs. For context, (fall).Patient states fell on right elbow about 5 weeks ago, went to ER for abrasion and pain. Normal xrays but has been swollen and painful since accident.Also states has been having worsening shortness of breath with heat, no air in home. Feels like lungs are full, very congested.ROS as noted in the HPI Elizabeth pederson, LUIS [facility] - [facility] 01/11/2018 12:10:55 8 text/html Musculoskeletal PainReported by PatientHPIFor severity, patient reportsworsening. For duration, patient reportspresent for >12 months. For context, patient reportsprior back problemsandused medication for back pain(intermittent joint pain--at present bursitis r elbow with swelling). For alleviating factors, patient reportsrestandrelieved by changing position. For aggravating factors, patient reportsmovement/positioning ,bending over, andtwisting. For associated symptoms, patient reportsno fever(sciatica r). For adl (activities of daily living), patient reportsimprove with medication. For location, (chronic joint and back pain with bursitis r elbow). For quality, (varies--worse at present since recent fall). For timing, (chronic with worsening since fall off the ladder). nelson's esophagus stable LUIS F Hodges - [facility] 04/05/2018 15:49:06 8 text/html Musculoskeletal PainReported by PatientHPIFor severity, patient reportssame. For duration, patient reportspresent for >12 months. For context, patient reportsprior back problemsandused medication for back pain. For alleviating factors, patient reportsrestandrelieved by changing position. For aggravating factors, patient reportsmovement/positioning ,bending over, andtwisting. For associated symptoms, patient reportsno feverandno incontinence. For adl (activities of daily living), patient reportsimprove with medication. For location, (chronic neck, back, and joint pain). For quality, (varies). For timing, (chronic with intermittent worsening). Care Management - HypertensionReported by PatientHPIFor prognosis, patient reportsexpected outcome: no changeandprognosis: good. For self care, patient reportsnot under emotional stressandusing an arb. For severity, patient reportsdoes not interfere with daily activitiesandno change since last visit. For associated symptoms, patient reportsno dizziness,no lightheadedness,no chest pain,no shortness of breath,no palpitations,no edema,no calf muscle cramps,no blurred vision,no confusion,no headaches, andno fatigue. Sinusitis/AllergyReported by PatientHPIFor associated symptoms, patient reportsheadache forehead,facial pain bilaterally,thick phlegm in throat,constantly clearing the throat,nasal passage blockage bilaterally, andpain behind the eyes bothbut reportsno nasal discharge,no fever,no weight loss,no hemoptysis, andno hematemesis. For severity, patient reportslimits daily activitiesandfrequent breathing through the mouth. For context, patient reportsworse with seasonal allergen exposure,worse around molds, andworse with environmental exposurebut reportsno recent upper respiratory infectionandno recent sick contacts. For location, patient reportsmaxillaryandfrontal. For duration, patient reportsinfrequent. For risk factors, patient reportsno current smoking or tobacco use,no family history of allergies,no history of nasal trauma,no allergy to aspirin,no history of asthma,no chemotherapy,no dm,no hiv, andno immunodeficiency. For aggravating factors, patient reportsnot worse when allergies are active. gerd stable on medication LUIS F Hodges - [facility] 03/04/2018 16:02:43
--- OUTSIDE RECORDS SUMMARY | 2025-05-21 10:35 | XMS_ITS | Clinical Summary ---
Author Organization [facility] Address [address] [place] [address] Care Team Providers Care Water Server Name Role Phone Unavailable Primary Care Provider Unavailabl e Source Comments [facility] is fully rolled out with thefollowing exceptions:General Clinical Research [facility] Social History Tobacco Use Types Packs/Day [...]
--- OUTSIDE RECORDS SUMMARY | 2025-05-21 10:35 | XMS_ITS | Encounter Summary ---
Author Organization [place] [address] Care Team Providers Care Managed Services Consultant Name Role Phone Terry Perez MD Primary Care Provider [phone] Jose Manrique MD Unavailable Unavailable Encounter Details Date Type Department Care Team (Late st Contact Info) Description 10/13/2013 Orders Only SEP Gastro [place] [address] [facility] [address] [place] [address] Jose Manrique MD Social History [...] AM EDT) 10/13/2013 7:30 AM EDT Impressions [facility] - 10/13/2013 7:56 AM EDT Normal esophagus. Normal stomach. Normal duodenum. This section is an excerpt of the full report. us Jose Manrique MD GI PROCEDURE ORDERABLES Final R esult [facility] [address] [place] [address] documented in this encounter Visit Diagnoses Not on filedocumented in this encounter Care Teams Managed Services Consultant Relationship Specialty Start Date End Date Terry Perez MD PCP - General 10/06/10 Jose Manrique MD Internal Medicine-Gastroenterology 09/15/13 documented as of this encounter
--- OUTSIDE RECORDS SUMMARY | 2025-05-21 10:35 | XMS_ITS | Encounter Summary ---
Author Organization [place] [address] Care Team Providers Care Ripening Room Hand Name Role Phone Terry Perez MD Primary Care Provider [phone] Jose Manrique MD Unavailable Unavailable Reason for Visit * Reason Onset Date Comments Referral 04/30/2025 Medical Records scanned in this encounter. Encounter Details Date Type Department Care Team (Late st Contact Info) Description 04/30/2025 Telephone [facility]P [facility] [address] [address] Go Mendez, DO [address] [place] [address] Referral (Medical Records scanned in this encounter. ) Social History Tobacco Use Types Packs/Day Years [...] on file documented as of this encounter Miscellaneous Notes * Telephone Encounter - Joseline Dennis, [facility] - 05/02/2025 4:07 PM EDT Verified that patient confirmed appointment with Dr Mendez for 05/03/25 at our [facility] office. Scanned Medical records received, into this encounter. * Telephone Encounter - Alan Chicas NA - 04/30/2025 4:03 PM EDT LVM asking pt to call back the office to potentially RS New Pt appt to this week in [facility] with Dr. Mendez. She has availability 05/03/25 if he would like to do that. * Telephone Encounter - Alan Chicas NA - 04/30/2025 11:47 AM EDT Pt stated that Dr. Perez sent a STAT REF for Dr. Chiu. Advised pt that Dr. Chiu was not accepting new pts and did not see where a STAT REF was received. Scheduled in [facility] with Dr. Vázquez but pt stated he would like to be notified if we received the STAT REF for a sooner appt. documented in this encounter Plan of Treatment Not on file documented as of this encounter Visit Diagnoses Not on filedocumented in this encounter Care Teams Ripening Room Hand Relationship Specialty Start Date End Date Terry Perez MD PCP - General 10/06/10 Jose Manrique MD Internal Medicine-Gastroenterology 09/15/13 documented as of this encounter
--- OUTSIDE RECORDS SUMMARY | 2025-05-21 10:35 | XMS_ITS | Clinical Summary ---
Author Organization [facility] Address [address] [place] [address] Care Team Providers Care Ciaio Counter Molder Name Role Phone Terry Perez MD Primary Care Provider [phone] Allergies Active Allergy Reactions Criticality Noted Date Comments Atorvastatin Swelling 12/01/2011 Joint pain and swelling Penicillins Swelling 03/19/2011 Bjyqeic-Sak-Htv Reductase Inhibitors Swelling 12/01/2011 Causes joint swelling [...] Depression Screening 07/26/2024 COVID-19 Vaccine (1 - 2024-2 6 season) 2025 Influenza Vaccination (#1) 2025 09/03/2006 [...] [Mass/volume] in Serum or Plasma < 200 [id number] - 239 Borderline High>= 240 High Triglycerides 84 <=150 mg/dL 02/22/2018 4:[address] [facility] Comment: Triglyceride [Mass/volume] in Serum or Plasma < 150 [id number] - 199 Borderline [id number] - 499 High >= 500 Very High HDL 100 >=40 mg/dL 02/22/2018 4:[address] [facility] Comment: Cholesterol in HDL [Mass/volume] in Serum or Plasma > 60 Efwvlou00 - 60 Acceptable < 40 Low Cholesterol in LDL [Mass/volume] in Serum or Plasma by calculation 99 <=100 mg/dL 02/22/2018 4:[address] [facility] Comment:Cholesterol in LDL [ Mass/volume] in Serum or Plasma by calculation Non HDL Cholesterol 116 <=129 mg/dL 02/22/2018 4:[address] [facility] Comment: Cholesterol non HDL [Mass/volume] in Serum or Plasma <130 [id number] Above [id number] Borderline [id number] High>= 220 Very High 02/22/2018 9:[address] [facility] - 02/22/2018 4:04 PM EDT Fax results to [phone] Jai Craft MD [facility] RESULTABLE O NLY Final Result [facility] from Last 3 Months or Most Recently Relevant to Health Maintenance Insurance NISHA ANTHEM ANTHEM Advance Directives For more information, please contact: [phone] * Full Code (Latest Code Status on [...] 10:59 PM 12/02/2011 8:07 AM Care Teams Ciaio Counter Molder Relationship Specialty Start Date End Date Terry Perez MD PCP - General Family Medicine 03/16/11
--- OUTSIDE RECORDS SUMMARY | 2025-05-21 10:35 | XMS_ITS | Clinical Summary ---
Author Organization [facility] Address [address] [place] [address] Care Team Providers Care Directory Assistance Operator Name Role Phone Terry Perez MD Primary Care Provider [phone] Allergies Active Allergy Reactions Criticality Noted Date [...] age to complete this topic Insurance [id number] [place] [facility] [place] [employer] ALL OTHERS NOT MEDICARE Care Teams Directory Assistance Operator Relationship Specialty Start Date End Date Terry Perez MD PCP - General Family Medicine 07/21/16
--- OUTSIDE RECORDS SUMMARY | 2025-05-21 10:35 | XMS_ITS | Clinical Summary ---
Author Organization [facility] Address [address] [facility] [place] [address] Phone Care Team Providers Care Control Integration Engineer Name Role Phone Terry Perez MD Primary Care Provider [phone] Jose Manrique MD Unavailable Unavailable Allergies Active Allergy Reactions Criticality Noted Date Comments Meloxicam Other (See Comments) High 06/22/2023 LIVER ENZYMES ELEVATED, VERY SICK Xcvwukm-Tda-Fhl Reductase Inhibitors Swelling,Myalgia Medium 05/12/2019 Patient states that he has had Atorvastatin, Simvastatin, Rosuvastatin, and Ezetimibe (Will not take another Statin again, he was miserable) Sulfa (Sulfonamide Antibiotics) Swelling Medium 09/15/2013 Patient states that he also had redness of the skin (Patient cannot recollect which Sulfa had been given, to long ago) Medications esomeprazole (NEXIUM) 40 mg Oral Capsule, Delayed Release(E.C.) Indications:g astroesophage al reflux disease Take 40 mg by mouth daily. Indications: gastroesophageal reflux disease Active amLODIPine (NORVASC) 10 mg Oral Tablet Take 10 mg by mouth daily. Active aspirin 81 mg tabletIndicat ions:Heart Take 81 mg by mouth daily. Indications: Heart Active albuterol (PROVENTIL HFA;VENTOLIN HFA) 90 mcg/actuation Inhl HFA Aerosol Inhaler Inhale 2 Puffs into the lungs daily as needed. Active celecoxib (CELEBREX) 200 mg Oral Capsule Take 200 mg by mouth daily. 3 04/04/20 19 Active nitroGLYCERIN (NITROSTAT) 0.4 mg SL Tablet, Sublingual Place 0.4 mg under the tongue every 5 minutes as needed for Chest pain. (Max 3 tablets in 15 min's, if no relief, call 911) 01/01/20 16 Active albuterol (PROVENTIL) 2.5 mg /3 mL (0.083 %) Inhl Solution for NebulizationI ndications:As thma 2.5 mg every 6 hours as needed. Indications: Asthma 03/09/20 19 Active cetirizine (ZYRTEC) 10 mg Oral Tablet Take 10 mg by mouth daily. Active montelukast (SINGULAIR) 10 mg Oral Tablet Take 10 mg by mouth daily. Active fluticasone propionate (FLONASE) 50 mcg/actuation Nasl [place], Suspension 1 [place] in each nostril daily. Active cyanocobalami n 1,000 mcg/mL Inj Solution 100 mcg. 09/01/19 25 Active Syringe with Needle, Disp, 3 mL 22 gauge x 1 Misc Syringe 09/11/19 25 Active tamsulosin (FLOMAX) 0.4 mg Oral Capsule 0.4 mg. 02/24/20 25 Active HYDROcodone-a cetaminophen (NORCO) 10-325 mg Oral Tablet take one (1) tablet by mouth every eight (8) hours as needed for pain 04/27/20 25 Active losartan (COZAAR) 50 mg Oral Tablet Take 50 mg by mouth daily. 02/16/20 25 Active ranitidine (ZANTAC) 150 mg tablet Take 150 mg by mouth daily as needed for Heartburn. Discontinu ed(Patient Reported not taking medication ) losartan (COZAAR) 100 mg Oral Tablet Take 50 mg by mouth daily. Discontinu ed(Patient Reported not taking medication ) loratadine (CLARITIN) 10 mg Oral Tablet Take 10 mg by mouth daily. Discontinu ed(Patient Reported not taking medication ) HYDROcodone-a cetaminophen (NORCO) 7.5-325 mg Oral Tablet Take 1 Tab by mouth every 6 hours as needed for Acute Pain (R52). Discontinu ed(Patient Reported not taking medication ) evolocumab 140 mg/mL SubQ Pen Injector Subcutaneous (Inject under the skin) 140 mg every 14 days. 03/16/20 19 025 Discontinu ed(Patient Reported not taking medication ) ELIQUIS 5 mg Oral Tablet Take 5 mg by mouth 2 times daily. 04/27/20 25 025 Discontinu ed(Cancell ed by MD) Active Problems Problem Noted Date Diagnosed Date Mass of soft tissue of neck 09/23/2022 Screening for colon cancer 09/02/2021 Overview (09/02/2021): Added automatically from request for surgery [id number] Acute chest pain 05/13/2019 Coronary artery disease invo lving [place] coronary artery of [place] heart with unstable angina pectoris 05/12/2019 Mild intermittent asthma without complication Gastroesophageal reflux disease without esophagi tis 05/12/2019 S/P coronary artery stent placement 05/12/2019 Overview (05/12/2019): remote angioplasty and stenting to the LAD treated for coronary vasospasm in the past most recent revascularization procedure was in 2011 with PCI. Dyslipidemia 05/12/2019 History of tobacco abuse 05/12/2019 Primary insomnia 05/12/2019 Essential hypertension 05/12/2019 Resolved Problems Problem Noted Date Diagnosed Date Resolved Date Impaired glucose tolerance 05/12/2019 1 Encounters Date Type Department Care Team Description 05/03/2025 1:30 PM EDT Office Visit [facility] [place] [address] [facility] [address] [place] [address] Go Mendez DO Encounter to establish care with new provider (Primary Dx); S/P coronary artery stent placement; Coronary artery disease involving [place] coronary artery of [place] heart without angina pectoris; APC (atrial premature contractions); Essential hypertension 05/02/2025 Travel 04/30/2025 Telephone [facility] [place] [address] [place] [address] Go Mendez DO Referral (Medical Records scanned in this encounter. ) from Last 3 Months Immunizations Immunization Administration Dates Next Due Pfizer [...] LAST ATTACH COUP LE MONTHS AGO IN 05/2023 Hyperlipidemia 05/2023 NO RX DU E [...] Pulse 70 05/03/2025 1:06 PM EDT Temperature 36.3 C (97.3 F) 06/24/2023 8:15 AM EST Respiratory Rate 20 06/24/2023 9:20 AM EST Oxygen Saturation 98% 05/03/2025 1:06 PM EDT Inhaled Oxygen Concentration - - Weight 78 kg (172 lb) 05/03/2025 1:06 PM EDT Height 172.7 cm (5' 8 ) 05/03/2025 1:06 PM EDT Body Mass Index 26.15 05/03/2025 1:06 PM EDT Plan of Treatment Health Maintenance Due [...] Encounter to establish care with new provider [facility] COLONOSCOPY Routine 10/28/2021 8:00 AM EDT from Last 3 Months or Most Recently Relevant to Health Maintenance Results * (ABNORMAL) POCT EKG (05/03/2025 1:08 PM EDT) 05/03/2025 1:08 PM EDT Impressions [facility] - 05/03/2025 1:08 PM EDT Sinus rhythm APC us Go Mendez DO POINT OF CARE CARDIOLOGY Fi nal Result Performing Organization Address City/State/[facility] de Phone Number SEP OFFICE * [facility] COLONOSCOPY (10/28/2021 8:00 AM EDT) 10/28/2021 8:00 AM EDT Impressions [facility] - 10/28/2021 8:31 AM EDT Mild [...] ORDERAB LES Final Result Performing Organization Address [facility] de Phone Number [facility] [address] [place] [phone] from Last 3 Months or Most Recently Relevant to Health Maintenance Insurance MEDICARE PART A on file [facility] MEDICARE ADVANTAGE MEDICARE PART A HB on file MEDICARE PART A on file [id number] [place] [id number] Advance Directives For more information, please contact: [phone] * Full Code (Latest Code Status on File) Date Activated Date Inactivated Comments 05/12/2019 3:07 PM 05/13/2019 8:57 PM Care Teams Control Integration Engineer Relationship Specialty Start Date End Date Terry Perez MD PCP - General 10/06/10 Jose Manrique MD Internal Medicine-Gastroenterology 09/15/13
== END 2025-05-18 23:59 ==
LOC: LAB.DROPOF 05-21 10:24
PROVIDERS: PCP Family Medicine; Visit Provider Family Medicine
DX: I49.9 Cardiac arrhythmia, unspecified (principal); R74.8 Abnormal levels of other serum enzymes; Z12.5 Encounter for screening for malignant neoplasm of prostate
CPT/HCPCS: 80053; 85025; G0103

== ENCOUNTER 2025-05-24 08:53 | Outpatient (CLI) | payer MEDICARE, SELFPAY ==
[2025-05-24 15:26] LABS: Albumin Level 3.3 g/dl (3.5-5.0); Chloride 101 mmol/L (98-107); Potassium 4.2 mmoL/L (3.5-5.1); Sodium 133 mmol/L (136-145)
[2025-05-24 15:29] LABS: Alanine Aminotransferase 25 U/L (12-78); Alkaline Phosphatase 211 U/L (38-126); Aspartate Amino Transferase 28 U/L (17-59); Bilirubin,Total 0.8 mg/dl (0.2-1.3); Blood Urea Nitrogen 14 mg/dl (9-20); Carbon Dioxide 28 mmol/L (22.0-30.0); Creatinine,Serum 0.70 mg/dl (0.66-1.25); Estimated Glomerular Filt Rate 109 ml/min (>60); GFR (African American) 132 ML/MIN (>60); Glucose 120 mg/dl (74-100); Total Protein,Serum 6.2 g/dl (6.3-8.2)
[2025-05-24 15:30] LABS: Calcium 9.3 mg/dl (8.4-10.2)
[2025-05-24 15:37] LABS: Albumin/Globulin Ratio 1.1 (1.1-1.8); Anion Gap 8.2 mEq/L (5-15); Globulin 2.9 g/dL (1.3-3.2)
== END 2025-05-24 23:59 ==
LOC: LAB.DROPOF 05-28 08:53
PROVIDERS: PCP Family Medicine; Visit Provider Family Medicine
DX: E78.5 Hyperlipidemia, unspecified (principal); I49.9 Cardiac arrhythmia, unspecified
CPT/HCPCS: 80053

== ENCOUNTER 2025-06-29 12:25 | Outpatient (CLI) | payer MEDICARE, SELFPAY ==
[2025-06-29 14:49] LABS: Hematocrit 36.0 % (42.0-52.0); Hemoglobin 12.0 g/dL (14.1-18.0); Immature Granulocytes % 0 %; Mean Corpuscular HGB Conc 33.3 g/dL (31.8-35.4); Mean Corpuscular Hemoglobin 31.8 pg (27.0-31.2); Mean Corpuscular Volume 95.5 fl (80-94); Nucleated Red Blood Cells % 0 %; Platelet Count 105 K/mm3 (142-424); Red Blood Count 3.77 M/mm3 (4.60-6.20); Red Cell Distribution Width-SD 43.8 fL; White Blood Count 3.2 K/mm3 (4.8-10.8)
[2025-06-29 15:18] LABS: Alanine Aminotransferase 73 U/L (12-78); Albumin Level 4.5 g/dl (3.5-5.0); Albumin/Globulin Ratio 2.0 (1.1-1.8); Alkaline Phosphatase 253 U/L (38-126); Anion Gap 10.4 mEq/L (5-15); Aspartate Amino Transferase 40 U/L (17-59); Bilirubin,Total 0.8 mg/dl (0.2-1.3); Blood Urea Nitrogen 15 mg/dl (9-20); Calcium 9.8 mg/dl (8.4-10.2); Carbon Dioxide 25 mmol/L (22.0-30.0); Chloride 102 mmol/L (98-107); Creatinine,Serum 0.70 mg/dl (0.66-1.25); Estimated Glomerular Filt Rate 109 ml/min (>60); GFR (African American) 132 ML/MIN (>60); Globulin 2.2 g/dL (1.3-3.2); Glucose 133 mg/dl (74-100); Potassium 4.4 mmoL/L (3.5-5.1); Sodium 133 mmol/L (136-145); Total Protein,Serum 6.7 g/dl (6.3-8.2)
[2025-06-29 15:40] LABS: Total Cells Counted 100
[2025-06-29 15:41] LABS: RBC Morphology Normal
--- OUTSIDE RECORDS SUMMARY | 2025-07-01 12:27 | XMS_ITS | Data Portability ---
Author Organization [facility] Address [address] [place] [address] Care Team Providers Care Cableman Name Role Phone JOSETTETERRY Cameron Primary Care Provider Assessment Encounter Date Assessment Date Assessment LastModified by Organization Details LastModified Time 11/02/2017 11/02/2017 CAD Stented quiescent Asthma Seasonal allergies Erosive oa Degenerative cervical spinal stenosis surgery 2006 Refill [place] 7.5 mg /325 mg 1/2-1 po pm prn #30 No signs or symptoms of adverse effects noted .Darrick reviewed and appropriate. Chronic back pain Depo Medrol 120 mg IM [email or web address] Not available 11/02/2017 10:49:29 01/25/2018 01/25/2018 Fall Residual bruising lumbar region (R) hip radiates anterior severe erosive changes elsewhere Stable cv stent x 1 quiescent asthma Rx [place] 7.5 mg 1/2- 1 tablet po TID [...] pain precludes sleep and normal activity Refill [place] 7.5 mg 1/2 -1 tablet po TID #45 [email or web address] Not available 03/04/2018 15:59:18 Plan of Treatment Reminders Order Date Submit Date Provider Last Modified By Organization Details Last Modified Time Details Appointments None [email or web address] argueta Lab crystal s, body fluid 2017 018 CLE[place] [facility], [address], Jack F, [place], [address], 8 14:37:19 Referral None recorde d. Procedures injecti on/aspi ration large joint/b ursa (PROC) 2017 018 [email or web address] Not available 8 08:30:20 Surgeries None recorde d. Imaging XR, hand, 3 or more view 2017 018 sneus Not available 8 19:25:03 XR, forearm , 2 view 2017 018 sneus Not available 8 19:25:03 XR, chest, 2 view 2017 018 sneus Not available 8 19:25:03 Medication Orders hydroco done 7.5 mg-acet aminoph en 325 mg tablet 2017 018 [email or web address] Not available 8 14:00:13 Flonase Allergy Relief 50 mcg/act uation nasal spray,s uspensi on 2017 018 sneus Not available 8 13:49:24 esomepr azole magnesi um 40 mg capsule ,delaye d release 2017 018 [employer] [facility] #[id number], [address] [place], [id number], 8 13:49:24 celecox ib 200 mg capsule 2017 [facility] [address] [place], [id number], 8 13:49:24 amlodip ine 10 mg tablet 2017 018 [facility] #88601, [address] [place], [id number], 8 13:49:24 Depo-Me drol 80 mg/mL suspens ion for injecti on 2017 018 [email or web address] Not available 8 10:31:07 Depo-Me drol 40 mg/mL suspens ion for injecti on 2017 018 Not available 8 10:31:04 esomepr azole magnesi um 40 mg capsule ,delaye d release 2017 018 [facility] #27504, [address] [place], [id number], 8 18:50:59 celecox ib 200 mg capsule 2017 018 [facility]427[facility], [address] [place], [id number], 8 18:50:59 hydroco done 7.5 mg-acet aminoph en 325 mg tablet 2017 018 [email or web address] Not available 8 10:49:14 Zithrom ax Z-Fer 250 mg tablet 2017 018 [email or web address] Not available 8 12:51:45 Depo-Me drol 80 mg/mL suspens ion for injecti on 2017 018 [email or web address] Not available 8 10:31:07 ketorol ac 60 mg/2 mL intramu scular solutio n 2017 018 Not available 8 10:41:48 hydroco done 7.5 mg-acet aminoph en 325 mg tablet 2017 018 [email or web address] Not available 8 17:09:09 Depo-Me drol 80 mg/mL suspens ion for injecti on 2017 018 Not available 8 10:31:07 Depo-Me drol 40 mg/mL suspens ion for injecti on 2017 018 [email or web address] Not available 8 10:31:04 hydroco done 7.5 mg-acet aminoph en 325 mg tablet 2017 018 [email or web address] Not available 8 09:25:58 Patient TargetsNo targets recorded. Patient Instructions Encounter Date Encounter Id Patient Instructions Last Modified By Organization Details Last Modified Time 11/02/2017 [id number] learning about healthy weight sneus Not available 11/02/2017 13:49:09 12/03/2017 [id number] costochondritis: care instructions sneus Not available 12/03/2017 19:25:03 01/11/2018 [id number] keep compression on elbow, gentle ROM exercises, RTC prn [email or web address] Not available 01/11/2018 12:03:02 01/25/2018 [id number] hip pain: care instructions sneus Not available 01/25/2018 18:50:59 nelson's esophagus: care instructions sneus Not available 01/25/2018 18:50:59 02/28/2018 [id number] back care and preventing injuries: care instructions [...] polar ized light . Not Available [facility] ([facility]) [address], [place], [address], 01/12/2018 14:37:19 12/04/19 18 12/03/2017 XR, chest [...] and Address Organization Details Recorded Time Arthropathy 213270721 Active 2015 Christa pederson, [place] - [facility] 6 11:03:24 Coronary arterioscleros is 94672863 Active 2015 Christa pederson [place] - [facility] 6 11:03:44 Neck pain 92307466 Active 2015 Christa pederson, [place] - [facility] 6 11:03:54 Chronic back pain 792433682 Active 2015 Christa Weaver null, [place] - [facility] 6 11:04:07 Nelson's esophagus 089640906 Active 2015 Christa Weaver null [place] - [facility] 6 11:04:34 Essential hypertension 49723753 Active 2015 Christa pederson, [place] - [facility] 6 11:05:05 Degenerative cervical spinal stenosis 406470019 Active 2015 Terry Perez [place], [place] - [facility] 6 11:39:37 Benign prostatic hyperplasia 054348841 Active 2015 Terry Perez [place] - [facility] 6 11:51:21 Seasonal allergy 222938552 Active 2017 Radha Levine [place], [place] - [...] Name and Address Organization Details Recorded Time 57366 Product containin g penicilli n (product) medicatio n anaphylax is Not available Not available 05/01/20162007 65606 8001 SNOMED React ion: Anaph ylaxi s; Comme nt: Penic illin ; Not Available [facility] 6 09:16:06 23053 codeine medicatio n rash Not available Not available 05/01/20162007 2670 RxNorm React ion: Putit is; Comme nt: codei ne; Christa pederson [place] [facility] 6 11:02:43 Medications Name Sig Start Date [...] Completi on: 01/21/20 14;Indic ation: Pain - (54.1213 35) Not Available Not Available Not Available Tessalon Perles 100 mg capsule take 1 capsule (100 mg) by oral route 3 times per day prn 12/03 completed Tessalon Perles 100 mg oral capsule; Prescrib e Status: Prescrib ed on: 10/17/19 15 10:53AM; Disconti nued Status: Disconti nued on: 12/04/19 15 8:53AM;U ser: gored;Es t. Completi on: 10/27/19 15;Indic ation: Cough - (43.6139 45);Phar [email or web address] fied: 10/17/19 15 10:53AM Not Available [...] 16;Indic ation: Major Depressi ve Disorder - (00.9933 79) Not Available Not Available Not Available esomepraz [...] tablet every day by oral route for 6523766 days. 2015 active Not Available Not Available [...] nued on: 10/19/19 16 7:10AM;U ser: gored;Catrachita brianne Renardi on: 08/27/19 16;Pharm acyVerif ied: 08/20/19 16 10:46AM Not Available Not Available Not Available Flonase Allergy Relief 50 mcg/actua tion nasal spray,ed pension [place] 1 spray every day by intranas al [...] Updated DateTime 8 172.72 cm 26.8 kg/m2 69628.2 6 g 80 /min 18 /min 118/82 mm[Hg] [facility] [facility] 8 08:36:00 Date Recorded Body height Body mass index (BMI) Body weight Heart rate Respiratory rate Systolic And Diastolic Provider Name and Address Organization Details Last Updated DateTime 8 172.72 cm 26.8 kg/m2 76829.2 6 g 80 /min 18 /min 128/74 mm[Hg] Radha KERNS [facility] 8 15:31:12 Date Recorded Body height Body mass index (BMI) Body weight Heart rate Oxygen saturation Respiratory rate Systolic And Diastolic Provider Name and Address Organization Details Last Updated DateTime 8 172.72 cm 26.9 kg/m2 90524.8 5 g 62 /min 99 % 20 /min 128/76 mm[Hg] Vannesa Young [place] - [facility] 8 10:41:34 Date Recorded Body height Body mass index (BMI) Body weight Heart rate Respiratory rate Systolic And Diastolic Provider Name and Address Organization Details Last Updated DateTime 8 172.72 cm 26 kg/m2 83367.3 g 72 /min 18 /min 118/70 mm[Hg] Radha Levine [facility] 8 09:24:24 Date Recorded Pain severity [facility] pain rating scale Provider Name and Address Organization Details Last Updated DateTime 01/25/2018 7 Not Available [facility] 8 07:52:26 Date Recorded Body height Body mass index (BMI) Body weight Heart rate Respiratory rate Systolic And Diastolic Provider Name and Address Organization Details Last Updated DateTime 8 172.72 cm 26 kg/m2 86333.3 g 96 /min 18 /min 110/80 mm[Hg] Radha Levine [facility] 8 13:20:59 Social History Question Answer Notes LastModified by FireBlade Details LastModified Time Tobacco Smoking Status Former Smoker Christa pederson [facility] 05/21/2016 11:07:30 Do You Have An Advance Directive? Yes [email or web address] Information not available 04/12/2017 Hard Of Hearing Or Deaf In One Or Both Ears? No [email or web address] Information not available 05/22/2016 Legally Blind In One Or Both Eyes? No Information not available 05/22/2016 Live Alone Or With Others? With Others [email or web address] Information not available 04/12/2017 What Was The Date Of Your Most Recent Tobacco Screening? 02/28/2018 Information n ot available 02/15/2019 Seat Belts Used Routinely Yes [email or web address] Information not available 05/22/2016 How Much Tobacco Do You Smoke? 1 PPD [email or web address] Information not available 05/21/2016 General Stress Level Medium [email or web address] Information not available 05/22/2016 How Many Years Have You Smoked Tobacco? 42 [email or web address] Information not available 05/21/2016 Sex: Unknown Functional Status Question Answer Note LastModified by FireBlade Details LastModified Time Are you currently employed? Yes [email or web address] Information not available 05/22/2016 Are you able to care for yourself independently? 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 Occasional [email or web address] Information not available 05/22/2016 Mental Status None recorded. Family History Relationship Description Onset Age of this Age Resolved Age Notes LastModified by Organization Details LastModified Time Father Cardiomegaly [email or web address] Not av ailable 05/21/2016 11:05:37 Father Coronary arterioscler osis [email or web address] Not available 04/26 11:06:02 Father Myocardial infarction [email or web address] Not available 11:06:41 Maternal Grandfather Cataract [email or web address] Not available 1 11:05:49 Brother Pulmonary [email or web address] Not available 04/26 11:06:14 Mother Malignant neoplasm of lung [email or web address] Not available 04/26 11:06:28 Maternal Grandmother Osteoarthrit is [email or web address] Not available 04/26 11:06:57 Medical History No medical history recorded. Immunizations Vaccine Type Date Status Note Provider Nam e and Address Organization Details Recorded Time Influenza, split virus, quadrivalent, preservative 6 completed Not Available [facility] 08/12/2019 03:54:18 Influenza, split virus, quadrivalent, preservative 7 completed Not Available [facility] 08/12/2019 03:54:43 influenza, unspecified formulation 1 completed Not Available [facility] 08/26/2019 02:21:38 influenza, unspecified formulation 2 completed Not Available [facility] 08/26/2019 02:21:38 influenza, unspecified formulation 3 completed Not Available [facility] 08/26/2019 02:21:38 influenza, unspecified formulation 4 completed Not Available [facility] 08/26/2019 02:21:38 influenza, unspecified formulation 5 completed Not Available [facility] 08/26/2019 02:21:38 Past Encounters Encounter ID Performer Location Encounter Start Date Encounter Closed Date Diagnosis/Indication Diagnosis SNOMED-CT Code Diagnosis ICD10 Code Diagnosis IMO Codes Diagnosis Note [id number] [facility] [address] [place] [address] 12/23/2007 00:00:00 [id number] [facility] [address] [place] [address] 11/30/2008 00:00:00 [id number] [facility] [address] [place] [address] [address] 07/09/2009 00:00:00 [id number] [facility] [address] [place] [address] 07/24/2009 00:00:00 [id number] [facility] [address] [place] [address] 03/07/2010 00:00:00 [id number] [facility] [address] [place] [address] 09/16/2010 00:00:00 [id number] [facility] [address] [place] [address] 09/24/2010 00:00:00 [id number] [facility] [address] [place] [address] [address] 01/20/2011 00:00:00 [id number] [facility] [address] [place] [address] 03/02/2011 00:00:00 [id number] [facility] [address] [place] [address] 05/01/2011 00:00:00 [id number] [facility] [address] [place] [address] [address] 02/16/2012 00:00:00 [id number] [facility] [address] [place] [address] 08/12/2012 00:00:00 [id number] [facility] [address] [place] [address] 12/02/2012 00:00:00 [id number] [facility] [address] [place] [address] 02/06/2013 00:00:00 [id number] [facility] [address] [place] [address] 09/26/2012 00:00:00 [id number] [facility] [address] [place] [address] 12/02/2012 00:00:00 [id number] [facility] [address] [place] [address] 12/06/2013 00:00:00 [id number] [facility] [address] [place] [address] 03/27/2014 00:00:00 [id number] [facility] [address] [place] [address] 06/08/2014 00:00:00 [id number] [facility] [address] [place] [address] 05/12/2013 00:00:00 [id number] [facility] [address] [place] [address] 07/30/2014 00:00:00 [id number] [facility] [address] [place] [address] 06/26/2013 00:00:00 [id number] [facility] [address] [place] [address] 08/14/2014 00:00:00 [id number] [facility] [address] [place] [address] 08/16/2013 00:00:00 [id number] [facility] [address] [place] [address] 10/02/2014 00:00:00 [id number] [facility] [address] [place] [address] 12/06/2013 00:00:00 [id number] [facility] [address] [place] [address] 10/16/2014 00:00:00 [id number] [facility] [address] [place] [address] 12/03/2014 00:00:00 [id number] [facility] [address] [place] [address] 12/20/2014 00:00:00 [id number] [facility] [address] [place] [address] 05/03/2015 00:00:00 [id number] [facility] [address] [place] [address] 08/20/2015 00:00:00 [id number] [facility] [address] [place] [address] 07/31/2015 00:00:00 [id number] [facility] [address] [place] [address] 10/01/2015 00:00:00 [id number] [facility] [address] [place] [address] 08/20/2015 00:00:00 [id number] [facility] [address] [place] [address] 10/29/2015 00:00:00 [id number] [facility] [address] [place] [address] 11/27/2015 00:00:00 [id number] [facility] [address] [place] [address] 02/24/2016 00:00:00 [id number] [facility] [address] [place] [address] 02/26/2016 00:00:00 [id number] Terry Perez MD [address] [place] [address] 05/22/2016 10:08:53 05/22/2016 12:07:37 General examination of patient 903313684 Z00.00 Hyperlipid emia screening 142165708 Z13.220 Administra tion of influenza vaccine 46370577 Z23 Degenerati ve cervical spinal stenosis 387660070 M48.02 surgery 2007Dr Miracle Coronary arteriosclerosis 10450551 I25.10 Benign pro static hyperplasia 915784346 N40.0 Essential hypertension 10759858 I10 Nelson's esophagus 3029 53816 K22.70 [id number] Elizabeth Quintero [address] [address] 05/28/2016 09:43:46 05/28/2016 10:21:55 Upper respiratory infection 30126679 J06.9 [id number] Elizabeth Quintero [address] [place] [address] 10/19/2016 09:46:02 10/19/2016 11:59:57 Upper respiratory infection 75142441 J06.9 [id number] Terry Perez MD [address] [place] [address] 11/23/2016 07:43:59 11/23/2016 09:06:38 Chronic back pain 214522376 M54.9 Arthritis 7127486 M19.90 Pain of joint 37665087 M 25.50 Renewal of prescription 870448899 Z76.0 [id number] Elizabeth Quintero [address] [place] [address] 01/18/2017 11:00:20 01/18/2017 13:13:28 Chronic back pain 105838295 M54.16 [id number] Elizabeth Quintero [address] [place] [address] 04/12/2017 09:46:58 04/12/2017 11:06:57 Body mass index 25-29 - overweight 615687684 Z68.25 Upper resp iratory infection 29541266 J06.9 [id number] Terry Perez MD [address] [place] [address] 05/21/2017 07:56:44 05/21/2017 10:29:04 Essential hypertension 91680304 I10 General ex amination of patient 265006226 Z00.00 Administra tion of influenza vaccine 54126900 Z23 Viral screening 59860571 4 Z11.59 Chronic back pain 090640 002 M54.9 Hyperlipid emia screening 322467755 Z13.220 Screening for malignant neoplasm of prostate 558505833 Z12.5 [id number] Elizabeth Quintero APRN [address] [address] 10/14/2017 08:40:45 10/14/2017 09:10:28 Upper respiratory infection 00947508 J06.9 [id number] Terry Perez MD [address] [place] [address] 11/02/2017 08:13:27 11/02/2017 09:26:27 Administration of viral vaccine 73827660 Z23 Chronic back pain 008868 002 M54.9 Degenerati ve cervical spinal stenosis 401428091 M48.[address] Miracle Body mass index 25-29 - overweight 499157528 Z68.26 [id number] Terry Perez MD [address] [place] [address] 12/03/2017 14:52:48 12/03/2017 16:37:23 Costal chondritis 63123094 M94.0 Pain of right forearm 31 33128098 05868 M79.631 Pain of right hand 00179 60202 34810 M79.641 Degenerati ve cervical spinal stenosis 564412916 M48.[address] Miracle [id number] Elizabeth Quintero APRN [address] [place] [address] 01/11/2018 10:26:33 01/11/2018 11:48:42 Lower respiratory tract infection 28554103 J22 Pain of elbow region 743 51759 M25.522 Effusion of joint 574921 008 M25.40 left elbow joint effusion aspirated with a return of 13 cc of serosangui nous fluid Chronic ob structive pulmonary disease 75786482 J44.9 [id number] Terry Perez MD [facility] [address] [address] 01/25/2018 08:37:02 01/25/2018 11:50:11 Degenerative cervical spinal stenosis 013037922 M48.02 Chronic back pain 964556 002 M54.9 Pain of mu ltiple joints 82531081 M25.50 Nelson's esophagus 3029 78643 K22.70 Pain of hip region 10281 002 M25.380 [id number] Terry Perez MD [facility] [address] [address] 02/28/2018 12:19:53 02/28/2018 14:16:50 Degenerative cervical spinal stenosis 845612817 M48.02 Chronic back pain 328210 002 M54.9 Essential hypertension 91992096 I10 Pain of mu ltiple joints 80813098 M25.50 Nelson's esophagus 3029 79207 K22.70 Seasonal allergy 1472274 04 J30.2 Low back pain 590930030 M54.5 Increased frequency of urination 958928333 R35.0 nocturnal Body mass index 25-29 - overweight 433188057 Z68.26 Health Concerns Section Related Observation LastModified by Organization Detai ls LastModified Time None Recorded Concern Status LastModified by Organization Details LastModified Time None Recorded Advance Directives Directive Y: Payers Insurance Date Sequence Insurance Name Policy Number Policy Benavidez Covered Member ID Benavidez Member ID Guarantor Name 03/21/2018 1 [place] [id number] Nguyen Olivas [id number] Rupert Olivas Notes Date Note Type [...] (usually injection needed of steroids). Angelique pederson [place] - [facility] 11/02/2017 10:55:25 8 text/html Musculoskeletal [...] back pain that has worsened since fall). Terry pederson [place] - [facility] 12/29/2017 11:24:59 8 text/html Musculoskeletal [...] fall off the ladder). nelson's esophagus stable Angelique pederson, [place] - [facility] 04/05/2018 15:49:06 8 text/html Musculoskeletal [...]
== END 2025-06-29 23:59 | disposition home or self-care (01) ==
LOC: LAB.DROPOF 07-01 12:25
PROVIDERS: PCP Family Medicine; Visit Provider Family Medicine
DX: M54.9 Dorsalgia, unspecified (principal); E78.5 Hyperlipidemia, unspecified
CPT/HCPCS: 80053; 85007; 85025